=== PATIENT | female | born 1965 | race Asian ===

== ENCOUNTER → 2016-06-18 | Outpatient (CLI) | payer BC ==
--- NOTE | 2016-06-19 11:40 | MM ---
Reason for exam: screening (asymptomatic). Last mammogram was performed 1 year and 4 months ago. History: Patient is postmenopausal and had first child at age 30. Family history of breast cancer in paternal aunt. Physical Findings: A clinical breast exam by your physician is recommended on an annual basis and results should be correlated with mammographic findings. MG 3D Screening Mammo W/Cad Bilateral CC and MLO view(s) were taken. Prior study comparison: February 08, 2015, bilateral MG screening mammo w CAD. December 01, 2013, bilateral MG screening mammo w CAD. The breast tissue is heterogeneously dense. This may lower the sensitivity of mammography. No significant changes when compared with prior studies. ASSESSMENT: Benign, BI-RAD 2 RECOMMENDATION: Routine screening mammogram of both breasts in 1 year.
== END | disposition home or self-care (01) ==
LOC: RADMAMWWP 15:09
PROVIDERS: ATTEND Family Medicine
DX: Z12.31 Encounter for screening mammogram for malignant neoplasm of breast (principal)
CPT/HCPCS: 77063; G0202

== ENCOUNTER → 2017-06-19 | Outpatient (CLI) | payer BC ==
--- NOTE | 2017-06-23 07:51 | MM ---
Reason for exam: screening (asymptomatic). Last mammogram was performed 1 year ago. History: Patient is postmenopausal and had first child at age 30. Family history of breast cancer in paternal aunt. Physical Findings: A clinical breast exam by your physician is recommended on an annual basis and results should be correlated with mammographic findings. MG 3D Screening Mammo W/Cad Bilateral CC and MLO view(s) were taken. Prior study comparison: June 18, 2016, bilateral MG 3d screening mammo w/cad. February 08, 2015, bilateral MG screening mammo w CAD. There are scattered fibroglandular densities. No significant changes when compared with prior studies. ASSESSMENT: Negative, BI-RAD 1 RECOMMENDATION: Routine screening mammogram of both breasts in 1 year.
== END | disposition home or self-care (01) ==
LOC: RADMAMWWP 16:14
PROVIDERS: ATTEND Family Medicine
DX: Z12.31 Encounter for screening mammogram for malignant neoplasm of breast (principal)
CPT/HCPCS: 77063; 77067

== ENCOUNTER → 2020-04-04 | Outpatient (CLI) | payer BC ==
--- NOTE | 2020-04-09 09:01 | BD ---
EXAMINATION TYPE: Axial Bone Density DATE OF EXAM: 04/04/2020 COMPARISON: DEXA 2014 CLINICAL HISTORY: Postmenopausal female Height: 5 FT 3 04/16 Weight: 181 FRAX RISK QUESTIONS: Alcohol (3 or more units per day): NO Family History (Parent hip fracture): NO Glucocorticoids (More than 3mos): NO (Ex: prednisone, prednisolone, methylprednisolone, dexamethasone, and hydrocortisone). History of Fracture in Adulthood: YES Secondary Osteoporosis: 1. Type 1 Diabetes: NO 2. Hyperthyroidism: NO 3. Menopause before 45: YES 4. Malnutrition: NO 5. Chronic liver disease: NO Rheumatoid Arthritis: NO Current Tobacco Use: NO RISK FACTORS HISTORY OF: Family History of Osteoporosis: NO Active: NO Diet low in dairy products/other sources of calcium: NO Postmenopausal woman: MID 40'S NATURALLY Take estrogen and/or progesterone medications: NONE Lost more than 2 inches in height since high school: NO MEDICATIONS: Additional Medications: NONE Additional History: EXAM MEASUREMENTS: Bone mineral densitometry was performed using the [employer] System. Bone mineral density as measured about the Lumbar spine is: ----- L1-L4(G/cm2): 1.172 T Score Values are as follows: ----- L2: -0.6 ----- L3: 0.3 ----- L4: -0.1 ----- L1-L4: -0.1 Bone mineral density has: DECREASED -12.5 % since study of: 2014 Bone mineral density about the R hip (g/cm2): 0.907 Bone mineral density about the L hip (g/cm2): 0.940 T Score values are as follows: -----R Neck: -0.9 -----L Neck: -0.7 -----R Total: 0.8 -----L Total: 0.6 Bone mineral density has: DECREASED -8.2 % since study of: 2014 IMPRESSION: Normal (Values between +1 and -1 indicate normal bone mass). Consider repeating this study in 5 year s or sooner if there is some new clinical indication. NOTE: T-SCORE=SD OF THE YOUNG ADULT MEAN.
--- NOTE | 2020-04-09 09:44 | MM ---
Reason for exam: screening (asymptomatic). Last mammogram was performed 2 years and 9 months ago. History: Patient is postmenopausal and had first child at age 30. Family history of breast cancer in paternal aunt. Physical Findings: A clinical breast exam by your physician is recommended on an annual basis and results should be correlated with mammographic findings. MG 3D Screening Mammo W/Cad Bilateral CC and MLO view(s) were taken. Prior study comparison: June 19, 2017, bilateral MG 3d screening mammo w/cad. June 18, 2016, bilateral MG 3d screening mammo w/cad. The breast tissue is heterogeneously dense. This may lower the sensitivity of mammography. Upper outer quadrant mole on the left. No significant changes when compared with prior studies. ASSESSMENT: Negative, BI-RAD 1 RECOMMENDATION: Routine screening mammogram of both breasts in 1 year.
== END | disposition home or self-care (01) ==
LOC: RADMAMWWP 12:37
PROVIDERS: ATTEND Nurse Practitioner Family
DX: Z12.31 Encounter for screening mammogram for malignant neoplasm of breast (principal); Z78.0 Asymptomatic menopausal state
CPT/HCPCS: 77063; 77067; 77080

== ENCOUNTER → 2022-12-31 | Outpatient (CLI) | payer BC ==
--- NOTE | 2023-01-01 11:20 | MM ---
Reason for Exam: Screening (asymptomatic). Last mammogram was performed 2 year(s) and 9 month(s) ago. Patient History: Menarche at age 11. First Full-Term at age 30. Late child-bearing (after 30). Postmenopausal. Patient has history of breast feeding. Paternal aunt had breast cancer. Risk Values: Anna 5 year model risk: 1.1%. NCI Lifetime model risk: 6.2%. Prior Study Comparison: 06/18/2016 Bilateral Screening Mammogram, [facility]. 06/19/2017 Bilateral Screening Mammogram, [facility]. 04/04/2020 Bilateral Screening Mammogram, [facility]. Tissue Density: The breast tissue is heterogeneously dense. This may lower the sensitivity of mammography. Findings: Analyzed By CAD. There is no suspicious group of microcalcifications or new suspicious mass in either breast. Benign-appearing calcifications. Overall Assessment: Benign, BI-RAD 2 Management: Screening Mammogram of both breasts in 1 year. . Patient should continue monthly self-breast exams. A clinical breast exam by your physician is recommended on an annual basis. This exam should not preclude additional follow-up of suspicious palpable abnormalities. Note on Anna scores and lifetime risk: 1. A Anna score greater than 3% is considered moderate risk. If this is the case, consider specialist referral to assess eligibility for a risk reducing agent. 2. If overall lifetime risk for the development of breast cancer is 20% or higher, the patient may qualify for future screening with alternating mammogram and breast MRI. Electronically signed and approved by: Jose Martin Busby M.D. Radiologis
== END | disposition home or self-care (01) ==
LOC: RADMAMWWP 16:02
PROVIDERS: ATTEND Family Medicine
DX: Z12.31 Encounter for screening mammogram for malignant neoplasm of breast (principal); Z78.0 Asymptomatic menopausal state; Z80.3 Family history of malignant neoplasm of breast
CPT/HCPCS: 77063; 77067

== ENCOUNTER 2024-08-15 16:16 | Inpatient (IN) | payer BC ==
--- NOTE | 2024-08-15 16:29 | ED ---
General Adult HPI - General Chief complaint: Neuro Symptoms/Deficit Stated complaint: Headache,Slurred Speech Time Seen by Provider: 08/15/24 16:28 Source: patient Mode of arrival: wheelchair Limitations: no limitations - History of Present Illness Initial comments: Katina is a 59-year-old female who presents the ER today for evaluation of difficulty speaking and weakness of the left arm. Patient reports that yesterday evening around 6 or 6:30 PM she had an episode where she had difficulty speaking her daughter noted that it sounded like she was speaking with her mouth guarded and her speech sounded somewhat slurred. This lasted about 30 minutes but resolved. Patient did not seek care at that time. Patient states that after lunch today she had an episode where she again has slurred speech but this time also noted that when she went to lift something with her left hand she needed to use her right arm to assist lifting due to weakness in the left arm. After discussing the symptoms with family patient decided come the ER for evaluation. Patient does note that she has been told she has high cholesterol in the past however she does not take any medications and states that she prefers to treat everything naturally with essential oils and herbal remedies. - Related Data Home Medications Medication Instructions Recorded Confirmed No Known Home Medications 04/08/16 08/15/24 Allergies Allergy/AdvReac Type Severity Reaction Status Date / Time lidocaine Allergy Rash/Hives Verified 08/15/24 19:41 egg AdvReac congestion Verified 08/15/24 19:41 Milk Containing Products AdvReac causes Verified 08/15/24 19:41 (Dairy) muscle [Dairy] pain and congestion Review of Systems ROS Statement: Those systems with pertinent positive or pertinent negative responses have been documented in the HPI. ROS Other: All systems not noted in ROS Statement are negative. Past Medical History Past Medical History: No Reported History Additional Past Medical History / Comment(s): screening History of Any Multi-Drug Resistant Organisms: None Reported Additional Past Surgical History / Comment(s): ECTOPIC SX Past Anesthesia/Blood Transfusion Reactions: No Reported Reaction Past Psychological History: No Psychological Hx Reported Past Alcohol Use History: None Reported Past Drug Use History: None Reported - Past Family History Mother Family Medical History: Cancer General Exam - General Exam Comments Initial Comments: Physical Exam GENERAL: Patient is well-developed and well-nourished. Patient is nontoxic and well- hydrated and is in no distress. HENT: Normocephalic, Atraumatic. EYES: PERRL, EOMI PULMONARY: Unlabored respirations. No audible rales rhonchi or wheezing was noted. CARDIOVASCULAR: There is a regular rate and rhythm without any murmurs gallops or rubs. ABDOMEN: Soft and nontender with normal bowel sounds. SKIN: Skin is clear with no lesions or rashes and otherwise unremarkable. : Deferred NEUROLOGIC: Patient is alert and oriented x3. Moving all extremities spontaneously NIH 0 Cranial nerves II through XII grossly intact MUSCULOSKELETAL: Normal extremities with adequate strength and full range of motion. No lower extremity swelling or edema. No calf tenderness. PSYCHIATRIC: Normal psychiatric evaluation. Limitations: no limitations Course Vital Signs 08/15/24 08/15/24 08/15/24 16:21 16:35 16:50 Temperature 98.1 F Pulse Rate 83 90 85 Pulse Rate [ Pulse Oximetery ] Respiratory 18 18 18 Rate Blood Pressure 199/115 190/101 200/119 Blood Pressure [Right Arm] O2 Sat by Pulse 96 98 98 Oximetry 08/15/24 08/15/24 08/15/24 17:05 17:38 17:53 Temperature Pulse Rate 86 82 80 Pulse Rate [ Pulse Oximetery ] Respiratory 18 16 15 Rate Blood Pressure 209/111 150/74 Blood Pressure [Right Arm] O2 Sat by Pulse 98 96 94 L Oximetry 08/15/24 08/15/24 08/15/24 18:26 18:53 19:48 Temperature Pulse Rate 85 85 90 Pulse Rate [ Pulse Oximetery ] Respiratory 18 18 18 Rate Blood Pressure 141/89 161/95 174/93 Blood Pressure [Right Arm] O2 Sat by Pulse 94 L 96 98 Oximetry 08/15/24 08/15/24 08/15/24 21:30 22:29 22:34 Temperature Pulse Rate 80 77 85 Pulse Rate [ Pulse Oximetery ] Respiratory 18 18 Rate Blood Pressure 171/90 163/90 167/79 Blood Pressure [Right Arm] O2 Sat by Pulse 98 97 98 Oximetry 08/15/24 23:03 Temperature 97.7 F Pulse Rate Pulse Rate [ 77 Pulse Oximetery ] Respiratory 17 Rate Blood Pressure Blood Pressure 147/86 [Right Arm] O2 Sat by Pulse 93 L Oximetry EKG Findings - EKG Comments: EKG Findings:: EKG obtained as part of the stroke workup, EKG obtained at 1714 EKG with a rate of 86 rhythm is sinus with leftward axis normal intervals [place] 180 QRS 94 QTc [address] elevations or depressions no evidence of acute ischemia infarction or pathologic arrhythmia Medical Decision Making - Medical Decision Making Was pt. sent in by a medical professional or institution (CLEMENTINA Gray, PSYCH NP, urgent care, hospital, or [facility]...) When possible be specific @ -No Did you speak to anyone other than the patient for history (EMS, parent, family, police, friend...)? What history was obtained from this source @ -No Did you review nursing and triage notes (agree or disagree)? Why? @ -I reviewed and agree with nursing and triage notes Were old charts reviewed (outside hosp., previous admission, EMS record, old EKG, old radiological studies, urgent care reports/EKG's, [facility] records)? Report findings @ -No old charts were reviewed Differential Diagnosis (chest pain, altered mental status, abdominal pain women, abdominal pain men, vaginal bleeding, weakness, fever, dyspnea, syncope, headache, dizziness, GI bleed, back pain, seizure, CVA, palpatations, mental health)? @ -Not applicable EKG interpreted by me (3pts min.). @ -As above X-rays interpreted by me (1pt min.). @ -None done CT interpreted by me (1pt min.). @ -None done U/S interpreted by me (1pt. min.). @ -None done What testing was considered but not performed or refused? (CT, X-rays, U/S, labs)? Why? @ -None What meds were considered but not given or refused? Why? @ -None Did you discuss the management of the patient with other professionals (professionals i.e. CLEMENTINA Gray, PSYCH NP, lab, RT, psych nurse, social media strategist, fire extinguisher inspector, teacher, fare enforcement officer, director case)? Give summary @ -No Was smoking cessation discussed for >3mins.? @ -No Was critical care preformed (if so, how long)? @ -No Were there social determinants of health that impacted care today? How? (Homel essness, low income, unemployed, alcoholism, drug addiction, transportation, low edu. Level, literacy, decrease access to med. care, group home, rehab)? @ -No Was there de-escalation of care discussed even if they declined (Discuss DNR or withdrawal of care, Hospice)? DNR status @ -No What co-morbidities impacted this encounter? (DM, HTN, Smoking, COPD, CAD, Cancer, CVA, ARF, Chemo, Hep., AIDS, mental health diagnosis, sleep apnea, morbid obesity)? @ -None Was patient admitted / discharged? Hospital course, mention meds given and route, prescriptions, significant lab abnormalities, going to OR and other pertinent info. @ -Admit The patient was seen and evaluated, patient was a code thrombolytic due to strokelike symptoms though they had resolved at arrival. CT of the head was negative for acute findings. Given the patient's NIH was 0 no intervention was recommended. Labs are relatively unremarkable. I advised the patient she should be admitted for evaluation by neurology patient was agreeable with this. Patient admitted to [facility] hospitalist group. Undiagnosed new problem with uncertain prognosis? @ -No Drug Therapy requiring intensive monitoring for toxicity (Heparin, Nitro, Insulin, Cardizem)? @ -No Were any procedures done? @ -No Diagnosis/symptom? @ -TIA Acute, or Chronic, or Acute on Chronic? @ -Acute Uncomplicated (without systemic symptoms) or Complicated (systemic symptoms)? @ -Uncomplicated Side effects of treatment? @ -No Exacerbation, Progression, or Severe Exacerbation? @ -No Poses a threat to life or bodily function? How? (Chest pain, USA, PA, pneumonia, PE, COPD, DKA, ARF, appy, cholecystitis, CVA, Diverticulitis, Homicidal, Suicidal, threat to staff... and all critical care pts) @ -Potentially, high incidence of impending stroke - Lab Data Result diagrams: 08/15/24 16:42 08/15/24 16:42 Lab Results 08/15/24 08/15/24 08/15/24 Range/Units 16:42 16:42 16:42 WBC 9.75 (4.50-10.00) 10*3/uL RBC 5.18 (4.10-5.20) 10*6/uL Hgb 14.9 (12.0-15.0) g/dL Hct 43.5 (37.2-46.3) % MCV 84.0 (80.0-97.0) fL MCH 28.8 (27.0-32.0) pg MCHC 34.3 (32.0-37.0) g/dL Plt Count 278 (140-440) 10*3/uL MPV 9.4 L (9.5-12.2) fL Immature Gran % (Auto) 0.3 % Neutrophils % 64.2 % Lymphocytes % 28.6 % Monocytes % 5.0 % Eosinophils % 1.6 % Basophils % 0.3 % Immature Gran # 0.03 (0.00-0.04) 10*3/uL Neutrophils # 6.25 (1.80-7.70) 10*3/uL Lymphocytes # 2.79 (0.90-5.00) 10*3/uL Monocytes # 0.49 (0.20-1.00) 10*3/uL Eosinophils # 0.16 (0.04-0.35) 10*3/uL Basophils # 0.03 (0.00-0.10) 10*3/uL PT 10.1 (10.0-12.5) sec INR 0.9 (<1.2) APTT 28.3 (22.0-30.0) sec Sodium 141 (137-145) mmol/L Potassium 4.1 (3.5-5.1) mmol/L Chloride 101 (98-107) mmol/L Carbon Dioxide 27 (22-30) mmol/L Anion Gap 13 mmol/L BUN 18 H (7-17) mg/dL Creatinine 0.65 (0.52-1.04) mg/dL Est GFR (CKD-EPI)AfAm >90 (>60 ml/min/1.73 sqM) Est GFR (CKD-EPI)NonAf >90 (>60 ml/min/1.73 sqM) Glucose 101 H (74-99) mg/dL POC Glucose (mg/dL) (70-110) mg/dL POC Glu Optometric Aide ID Calcium 10.0 (8.4-10.2) mg/dL Total Bilirubin 0.5 (0.2-1.3) mg/dL AST 32 (14-36) U/L ALT 33 (4-34) U/L Alkaline Phosphatase 75 (38-126) U/L Creatine Kinase 88 (30-135) U/L Troponin I (0.000-0.034) ng/mL Total Protein 8.5 H (6.3-8.2) g/dL Albumin 4.9 (3.5-5.0) g/dL 08/15/24 08/15/24 Range/Units 16:42 16:43 WBC (4.50-10.00) 10*3/uL RBC (4.10-5.20) 10*6/uL Hgb (12.0-15.0) g/dL Hct (37.2-46.3) % MCV (80.0-97.0) fL MCH (27.0-32.0) pg MCHC (32.0-37.0) g/dL Plt Count (140-440) 10*3/uL MPV (9.5-12.2) fL Immature Gran % (Auto) % Neutrophils % % Lymphocytes % % Monocytes % % Eosinophils % % Basophils % % Immature Gran # (0.00-0.04) 10*3/uL Neutrophils # (1.80-7.70) 10*3/uL Lymphocytes # (0.90-5.00) 10*3/uL Monocytes # (0.20-1.00) 10*3/uL Eosinophils # (0.04-0.35) 10*3/uL Basophils # (0.00-0.10) 10*3/uL PT (10.0-12.5) sec INR (<1.2) APTT (22.0-30.0) sec Sodium (137-145) mmol/L Potassium (3.5-5.1) mmol/L Chloride (98-107) mmol/L Carbon Dioxide (22-30) mmol/L Anion Gap mmol/L BUN (7-17) mg/dL Creatinine (0.52-1.04) mg/dL Est GFR (CKD-EPI)AfAm (>60 ml/min/1.73 sqM) Est GFR (CKD-EPI)NonAf (>60 ml/min/1.73 sqM) Glucose (74-99) mg/dL POC Glucose (mg/dL) 128 H (70-110) mg/dL POC Glu Optometric Aide ID Ricketts Andriy Calcium (8.4-10.2) mg/dL Total Bilirubin (0.2-1.3) mg/dL AST (14-36) U/L ALT (4-34) U/L Alkaline Phosphatase (38-126) U/L Creatine Kinase (30-135) U/L Troponin I <0.012 (0.000-0.034) ng/mL Total Protein (6.3-8.2) g/dL Albumin (3.5-5.0) g/dL Disposition Clinical Impression: Transient cerebral ischemia Disposition: ADMITTED IP TO THIS HOSP Condition: Serious Is patient prescribed a controlled substance at d/c from ED?: No
[2024-08-15 16:44] LABS: Glucose,Whole Blood 128 mg/dL (70-110)
[2024-08-15 16:49] LABS: Basophils # (A) 0.03 10*3/uL (0.00-0.10); Basophils % (A) 0.3 %; Eosinophils # (A) 0.16 10*3/uL (0.04-0.35); Eosinophils % (A) 1.6 %; HCT 43.5 % (37.2-46.3); HGB 14.9 g/dL (12.0-15.0); Lymphocytes # (A) 2.79 10*3/uL (0.90-5.00); Lymphocytes % (A) 28.6 %; MCH 28.8 pg (27.0-32.0); MCHC 34.3 g/dL (32.0-37.0); Mean Platelet Volume 9.4 fL (9.5-12.2); Monocytes # (A) 0.49 10*3/uL (0.20-1.00); Neutrophils # (A) 6.25 10*3/uL (1.80-7.70); Neutrophils % (A) 64.2 %; Platelet Count 278 10*3/uL (140-440); RBC 5.18 10*6/uL (4.10-5.20); WBC 9.75 10*3/uL (4.50-10.00)
[2024-08-15 16:58] LABS: INR 0.9 (<1.2); Partial Thromboplastin Time 28.3 sec (22.0-30.0); Prothrombin Time 10.1 sec (10.0-12.5)
[2024-08-15 17:05] LABS: ALT 33 U/L (4-34); AST 32 U/L (14-36); African American GFR (CKD) >90 (>60 ml/min/1.73 sqM); Albumin 4.9 g/dL (3.5-5.0); Alkaline Phosphatase 75 U/L (38-126); Anion Gap 13 mmol/L; Blood Urea Nitrogen 18 mg/dL (7-17); Carbon Dioxide 27 mmol/L (22-30); Chloride 101 mmol/L (98-107); Creatine Kinase 88 U/L (30-135); Glucose 101 mg/dL (74-99); Non-African American GFR(CKD) >90 (>60 ml/min/1.73 sqM); Potassium 4.1 mmol/L (3.5-5.1); Sodium 141 mmol/L (137-145); Total Bilirubin 0.5 mg/dL (0.2-1.3); Total Protein 8.5 g/dL (6.3-8.2)
--- NOTE | 2024-08-15 17:30 | CT ---
EXAMINATION TYPE: CODE STROKE: CT brain wo contr DATE OF EXAM: 08/15/2024 5:26 PM COMPARISON: None. CLINICAL INDICATION: Female, 59 years old with history of Neuro deficit, acute, stroke suspected, Pt is coming in for slurred speech that occurred for 30 minutes last night and happened again today and lasted about 30 minutes, pt also mentioned left arm tingling. No priors in pacs 65 ml Isovue 370 DLP : 1544 KT TECHNIQUE: CT of the brain is performed utilizing 3 mm thick sections through the posterior fossa and 3 mm thick sections through the remaining calvarium. Study is performed within 24 hours of arrival to the hospital. Contrast used: mL of , (none if empty) CT DLP: 1544 mGycm, Automated exposure control for dose reduction was used. FINDINGS: No abnormal hyperdensity is present to suggest an acute intracranial hemorrhage. No mass lesion is evident. No acute infarcts are evident. Ventricles and sulci are appropriate for the patient age. Paranasal sinuses and mastoid air cells within the [id number] are clear. IMPRESSION: 1. No acute intracranial process. Follow up MRI can be performed as clinically indicated. [facility], Workstation: [facility], 08/15/2024 5:27 PM
--- NOTE | 2024-08-15 17:54 | CT ---
EXAMINATION TYPE: CT angio head neck DATE OF EXAM: 08/15/2024 5:36 PM COMPARISON: None. CLINICAL INDICATION: Female, 59 years old with history of Neuro deficit, acute, stroke suspected, Pt is coming in for slurred speech that occurred for 30 minutes last night and happened again today and lasted about 30 minutes, pt also mentioned left arm tingling. No priors in pacs 65 ml Isovue 370 DLP : 1544 KT TECHNIQUE: CTA scan is performed with axial images are obtained, coronal and sagittal reformatted vikram ges are reviewed. MIP images created on a separate workstation and submitted for review. 3-D reconstr ucted images are created on an independent workstation and reviewed. Source images are reviewed. FREDERIC CET criteria was used in interpretation of this exam? Contrast used:65 mL of Isovue 370 with IV Contrast, (none if empty) Oral contrast used: (none if empty) CT DLP: 1544 mGycm, Automated exposure control for dose reduction was used. FINDINGS: Carotid/Vascular Structures: There is a 3 vessel arch. Common carotid arteries bifurcate into internal and external carotid arteries without significant clyde w limiting stenosis. Vertebral arteries are codominant. Internal carotid arteries and vertebral arteries are patent to the skull base. Lung apices field-of- view are clear Cervical of [place]: Vertebral basilar system appears normal. Posterior cerebral vasculature is unrema rkable. Internal carotid arteries bifurcate normally into A1 and M1 segments. A2 segments are normal. The anterior communicating artery is absent. The right posterior communicating artery is absent. The left posterior communicating artery is absent. IMPRESSION: 1. No flow-limiting stenosis bilateral carotid bifurcations. 2. Normal [place] [facility], , 08/15/2024 5:52 PM
[2024-08-15] MEDS: ASPIRIN 325 MG TAB PO STA (18:47)
[2024-08-15] MEDS: ATORVASTATIN 80 MG TAB PO SCH (20:24)
--- NOTE | 2024-08-15 21:15 | XR ---
EXAMINATION TYPE: XR chest 2V DATE OF EXAM: 08/15/2024 8:22 PM COMPARISON: None. CLINICAL INDICATION: Female, 59 years old with history of altered mental status, TECHNIQUE: XR chest 2V view(s) obtained. FINDINGS: The heart size is normal. The pulmonary vasculature is normal. The lungs are clear. IMPRESSION: 1. No acute pulmonary process. [facility], Workstation: [facility], 08/15/2024 9:13 PM
[2024-08-16 08:11] LABS: Chol/HDL Ratio 5.06 Ratio; LDL Cholesterol,Calculated 200.5 mg/dL (0.0-131.0)
--- NOTE | 2024-08-16 15:10 | P.CNNES ---
History of Present Illness Consult date: 08/16/24 Requesting physician: Tereza Levy Reason for Consult: tia History of Present Illness: This is a 59-year-old woman with history of dyslipidemia and is not on any medication presents emergency department because of slurring speech and left hand weakness. She stated that her symptoms began this past Thursday and it la sted for about 1/2-hour then resolved then had another episode yesterday again lasted for half hour. She states that she continues to have some weakness in the left hand with her fine motor movement. She denies any history of stroke. She does have a history of dyslipidemia that is chronic and refuses to be on medication in the past and tried herbal route. She is on any medication at home. She denies any tobacco use, any illicit drug use or any significant alcohol use. She denies any A-fib, any other medical issues. Some of workup during this hospital visit consisted of: I reviewed the lab workup Lipid panel: Triglyceride is 245, cholesterol is 311, LDL is 200, HDL 61. CT of the head is reported as no acute intracranial process. I personally reviewed the CT and agree with the report. CT angiography of the head and neck is reported as no flow-limiting stenosis bilateral carotid bifurcation. Normal [place]. Review of Systems As per HPI. Past Medical History Past Medical History: No Reported History Additional Past Medical History / Comment(s): screening History of Any Multi-Drug Resistant Organisms: None Reported Additional Past Surgical History / Comment(s): ECTOPIC SX Past Anesthesia/Blood Transfusion Reactions: No Reported Reaction Past Psychological History: No Psychological Hx Reported Past Alcohol Use History: None Reported Past Drug Use History: None Reported - Past Family History Mother Family Medical History: Cancer Medications and Allergies Home Medications Medication Instructions Recorded Confirmed Type No Known Home Medications 04/08/16 08/15/24 History Allergies Allergy/AdvReac Type Severity Reaction Status Date / Time lidocaine Allergy Rash/Hives Verified 08/15/24 19:41 egg AdvReac congestion Verified 08/15/24 19:41 Milk Containing Products AdvReac causes Verified 08/15/24 19:41 (Dairy) muscle [Dairy] pain and congestion Physical Examination - Vital Signs Vital Signs: Vital Signs Temp Pulse Pulse Resp BP BP BP 08/16/24 14:20 97.6 F 93 16 186/103 08/16/24 06:55 97.4 F L 72 16 156/93 08/16/24 01:06 97.9 F 60 16 153/86 08/15/24 23:03 97.7 F 77 17 147/86 08/15/24 22:34 85 167/79 08/15/24 22:29 77 18 163/90 08/15/24 21:30 80 18 171/90 08/15/24 19:48 90 18 174/93 08/15/24 18:53 85 18 161/95 08/15/24 18:26 85 18 141/89 08/15/24 17:53 80 15 08/15/24 17:38 82 16 150/74 08/15/24 17:05 86 18 209/111 08/15/24 16:50 85 18 200/119 08/15/24 16:35 90 18 190/101 08/15/24 16:21 98.1 F 83 18 199/115 Pulse Ox 08/16/24 14:20 98 08/16/24 06:55 96 08/16/24 01:06 95 08/15/24 23:03 93 L 08/15/24 22:34 98 08/15/24 22:29 97 08/15/24 21:30 98 08/15/24 19:48 98 08/15/24 18:53 96 08/15/24 18:26 94 L 08/15/24 17:53 94 L 08/15/24 17:38 96 08/15/24 17:05 98 08/15/24 16:50 98 08/15/24 16:35 98 08/15/24 16:21 96 Intake and Output 08/15/24 08/16/24 08/16/24 22:59 06:59 14:59 Intake Total 590 Balance 590 Intake: Oral 590 Other: # Voids 2 2 Weight 79.379 kg GENERAL: The patient is lying in bed and is not in acute distress. NEUROLOGICAL: Higher mental function: The patient is awake, alert, oriented to self, place and time. Patient is following commands. No aphasia and no neglect. Cranial nerves: The pupils are round, equal and reactive to light and acco mmodation. Visual rosales are full to confrontation throughout. Extraocular movement is intact no nystagmus is noted. Facial sensation is normal to touch throughout. The facial strength is normal throughout. Hearing is normal bilaterally to hand rub. Tongue is midline and moved [id number] without any difficulty. No dysarthria is noted. Shoulder shrug is normal bilaterally. Motor: The strength is 5 over 5 throughout. Normal tone and bulk. Cerebellum: Normal finger to nose heel to pike bilaterally. Sensation: Sensation is normal to touch throughout. Reflexes (right/left): 2+ throughout. Plantars are downgoing bilaterally. Results - Laboratory Findings CBC and BMP: 08/15/24 16:42 08/15/24 16:42 Abnormal Lab Findings: Abnormal Labs 08/15/24 08/15/24 08/15/24 16:42 16:42 16:42 MPV 9.4 L BUN 18 H Glucose 101 H POC Glucose (mg/dL) Total Protein 8.5 H Triglycerides 245.00 H Cholesterol 311.00 H LDL Cholesterol, Calc 200.5 H VLDL Cholesterol, Calc 49.00 H HDL Cholesterol 61.50 H 08/15/24 16:43 MPV BUN Glucose POC Glucose (mg/dL) 128 H Total Protein Triglycerides Cholesterol LDL Cholesterol, Calc VLDL Cholesterol, Calc HDL Cholesterol Assessment and Plan Assessment: This is a 59-year-old woman with history of dyslipidemia who is on herbal medication and she was medication for her dyslipidemia in the past who presents the emergency department because of dysarthria and left arm numbness and left hand fine motor movements weakness. Her symptoms happened this past Thursday lasted for half hour then occurred again. Transischemic attack (TIA) Hypertension urgency blood pressure during this hospital visit was as high as 200/119 Dyslipidemia and it seems that patient has chronic dyslipidemia and was on herbal and refused medication in the past. Plan: Patient is started on aspirin 81 mg daily and was given a loading dose of aspirin 325 once in the ED. It seems that she bruised easily, dual antiplatelet that with increased risk for bleed. She is started on Lipitor 80 mg nightly by the ED team and that sufficient for secondary stroke prophylaxis. I ordered MRI of the brain, 2D echo, TSH Continue neurochecks Cardiac monitoring PT, OT and [employer]OVER are consulted next Will defer the rest of the medical management to primary and other specialist For DVT prophylaxis use SCDs since the patient is ambulatory. The plan is discussed with the patient and her at bedside. Thank you for the consultation. Time with Patient: Greater than 30
[2024-08-16] MEDS: ASPIRIN 81 MG PO SCH (18:39)
[2024-08-16] MEDS: amLODIPine 5 MG TAB PO SCH (18:39)
--- NOTE | 2024-08-16 20:05 | P.HPIM ---
History of Present Illness H&P Date: 08/16/24 Chief Complaint: Slurred speech Patient is a 59-year-old female without significant past medical history presents to ER with complaints of slurred speech and left hand weakness on and off for 3 days. Patient states that on Thursday symptoms lasted about half an hour and again yesterday about half an hour she came to ER for evaluation.. Again today she has symptoms this morning lasted longer than that and also states that she had a charley horse on the left leg. Currently symptoms have resolved but still having some residual left upper extremity weakness. Denies any headache. No nausea vomiting or diarrhea. No recent illnesses. No fever no chills. No chest pain or shortness of breath or palpitations. CT head showed no acute intracranial process. CT angiogram of the head and neck showed no flow-limiting stenosis bilateral carotid bifurcations. Normal [place]. Chest x-ray showed no acute pulmonary process. EKG showed sinus rhythm with low QRS voltage in the precordial leads. Laboratory data showed WBC 9.7 hemoglobin 14.9 and platelets 278 sodium 141 potassium 4.1 chloride 101 bicarb is 27 BUN 18 and creatinine 0.65 blood sugar 101 LDL 212 cholesterol 311 and triglycerides 245. 11 years not elevated. Troponin x 1 negative Review of Systems Constitutional: Patient denies any fever or chills . No generalized weakness or weight loss. Abdomen: Patient denied nausea vomiting and diarrhea and abdominal pain. Cardiovascular: Patient denies any chest pain or short of breath no palpitations. Respiratory: patient denied any cough or sputum production. No shortness of breath Neurologic: Patient denied any numbness or tingling. no headache. Musculoskeletal: Patient denies any complaints of joint swelling or deformity. Skin: Negative Psychiatric: Negative Endocrine: No heat or cold intolerance. No recent weight gain. Genitourinary: No dysuria or hematuria. All other 14 point ROS negative except the above Past Medical History Past Medical History: No Reported History Additional Past Medical History / Comment(s): screening History of Any Multi-Drug Resistant Organisms: None Reported Additional Past Surgical History / Comment(s): ECTOPIC SX Past Anesthesia/Blood Transfusion Reactions: No Reported Reaction Past Psychological History: No Psychological Hx Reported Past Alcohol Use History: None Reported Past Drug Use History: None Reported - Past Family History Mother Family Medical History: Cancer Medications and Allergies Home Medications Medication Instructions Recorded Confirmed Type No Known Home Medications 04/08/16 08/15/24 History Allergies Allergy/AdvReac Type Severity Reaction Status Date / Time lidocaine Allergy Rash/Hives Verified 08/15/24 19:41 egg AdvReac congestion Verified 08/15/24 19:41 Milk Containing Products AdvReac causes Verified 08/15/24 19:41 (Dairy) muscle [Dairy] pain and congestion Physical Exam Vitals: Vital Signs Temp Pulse Pulse Resp BP BP BP 08/16/24 06:55 97.4 F L 72 16 156/93 08/16/24 01:06 97.9 F 60 16 153/86 08/15/24 23:03 97.7 F 77 17 147/86 08/15/24 22:34 85 167/79 08/15/24 22:29 77 18 163/90 08/15/24 21:30 80 18 171/90 08/15/24 19:48 90 18 174/93 08/15/24 18:53 85 18 161/95 08/15/24 18:26 85 18 141/89 08/15/24 17:53 80 15 08/15/24 17:38 82 16 150/74 08/15/24 17:05 86 18 209/111 08/15/24 16:50 85 18 200/119 08/15/24 16:35 90 18 190/101 08/15/24 16:21 98.1 F 83 18 199/115 Pulse Ox 08/16/24 06:55 96 08/16/24 01:06 95 08/15/24 23:03 93 L 08/15/24 22:34 98 08/15/24 22:29 97 08/15/24 21:30 98 08/15/24 19:48 98 08/15/24 18:53 96 08/15/24 18:26 94 L 08/15/24 17:53 94 L 08/15/24 17:38 96 08/15/24 17:05 98 08/15/24 16:50 98 08/15/24 16:35 98 08/15/24 16:21 96 Intake and Output 08/15/24 08/16/24 08/16/24 22:59 06:59 14:59 Intake Total 590 Balance 590 Intake: Oral 590 Other: # Voids 2 Weight 79.379 kg PHYSICAL EXAMINATION: Patient is lying in the bed comfortably, no acute distress, awake alert and oriented.. HEENT: Normocephalic. Neck is supple. Pupils reactive. Nostrils clear. Oral cavity is moist. Neck reveals no JVD, carotid bruits, or thyromegaly. CHEST EXAMINATION: Trachea is central. Symmetrical expansion. Lung rosales clear to auscultation and percussion. CARDIAC: Normal S1, S2 with no gallops. No murmurs ABDOMEN: Soft. Bowel sounds normal. No organomegaly. No abdominal bruits. Extremities: reveal no edema. No clubbing or cyanosis Neurologically awake, alert, oriented x3 with well-coordinated movements. No focal deficits noted Skin: No rash or skin lesions. Psychiatric: Coperative. Nonsuicidal Musculoskeletal: No joint swelling or deformity. Normal range of motion. Results CBC & Chem 7: 08/15/24 16:42 08/15/24 16:42 Labs: Abnormal Lab Results - Last 24 Hours (Table) 08/15/24 08/15/24 08/15/24 Range/Units 16:42 16:42 16:42 MPV 9.4 L (9.5-12.2) fL BUN 18 H (7-17) mg/dL Glucose 101 H (74-99) mg/dL POC Glucose (mg/dL) (70-110) mg/dL Total Protein 8.5 H (6.3-8.2) g/dL Triglycerides 245.00 H (0.00-149.00) mg/dL Cholesterol 311.00 H (0.00-200.00) mg/dL LDL Cholesterol, Calc 200.5 H (0.0-131.0) mg/dL VLDL Cholesterol, Calc 49.00 H (5.00-40.00) mg/dL HDL Cholesterol 61.50 H (40.00-60.00) mg/dL 08/15/24 Range/Units 16:43 MPV (9.5-12.2) fL BUN (7-17) mg/dL Glucose (74-99) mg/dL POC Glucose (mg/dL) 128 H (70-110) mg/dL Total Protein (6.3-8.2) g/dL Triglycerides (0.00-149.00) mg/dL Cholesterol (0.00-200.00) mg/dL LDL Cholesterol, Calc (0.0-131.0) mg/dL VLDL Cholesterol, Calc (5.00-40.00) mg/dL HDL Cholesterol (40.00-60.00) mg/dL Thrombosis Risk Factor Assmnt - DVT/VTE Prophylaxis DVT/VTE Prophylaxis: Pharmacologic Prophylaxis ordered - Choose All That Apply Each Factor Represents 1 point: Age 41-60 years, Obesity (BMI >25) Thrombosis Risk Factor Assessment Total Risk Factor Score: 2 Thrombosis Risk Factor Assessment Level: Low Risk Assessment and Plan Assessment: Left-upper extremity weakness and slurred speech likely due to TIA. Resolved now. Hypertensive urgency Hyperlipidemia with LDL 212 DVT prophylaxis with heparin subcu Plan: Patient will be continued on telemonitoring and neurochecks. CT head and CT angio of the head and neck was done and report as above. Follow-up 2D echocardiogram and MRI of the brain was ordered. Neurology is on board. Patient was started on Norvasc 5 mg daily and titrate blood pressure medications as needed. Ordered TSH and A1c levels. Continue to follow closely.
[2024-08-16 22:28] LABS: Appearance,Urine Clear (Clear); Bilirubin,Urine Negative (Negative); Blood,Urine Negative (Negative); Color,Urine Colorless; Glucose,Urine (UA) Negative (Negative); Ketones,Urine Negative (Negative); Leukocyte Esterase,Urine Negative (Negative); Nitrite,Urine Negative (Negative); Protein,Urine Negative (Negative); Specific Gravity,Urine 1.002 (1.001-1.035); Urobilinogen,Urine <2.0 mg/dL (<2.0)
[2024-08-17] MEDS: HEPARIN SODIUM,PORCINE 5,000 UNIT/ML 1 ML VIAL SQ SCH (00:42)
[2024-08-17] MEDS: MELATONIN 5 MG TABLET PO PRN (01:32)
[2024-08-17 08:36] LABS: Blood Urea Nitrogen 14.7 mg/dL (9.0-27.0); Calcium 9.3 mg/dL (8.7-10.3); Carbon Dioxide 22.7 mmol/L (21.6-31.8); Chloride 103 mmol/L (96-109); Glucose 110 mg/dL (70-110); Sodium 140 mmol/L (135-145)
[2024-08-17] MEDS ORDERED: ASPIRIN 81 MG PO SCH (09:00)
[2024-08-17] MEDS ORDERED: amLODIPine 5 MG TAB PO SCH (09:00)
--- NOTE | 2024-08-17 11:16 | CA ---
Transthoracic Echo Report Name: Katina Downey Age: 59 Gender: F : 1965 Exam Date: 08/17/2024 08:42 Exam Location: [facility] Ht (in): 63 Wt (lb): 175 Ordering Physician: Antwan Dougherty MD Attending/Referring Phys: Sprinkler Driver Qasim Castro RDCS Procedure CPT: Indications: CVA Cardiac Hx: Technical Quality: Good Contrast 1: Total Dose (mL): Contrast 2: Total Dose (mL): MEASUREMENTS (Male / Female) Normal Values 2D ECHO LV Diastolic Diameter PLAX 3.9 cm 4.2 - 5.9 / 3.9 - 5.3 cm LV Systolic Diameter PLAX 2.6 cm IVS Diastolic Thickness 1.0 cm 0.6 - 1.0 / 0.6 - 0.9 cm LVPW Diastolic Thickness 1.0 cm 0.6 - 1.0 / 0.6 - 0.9 cm LV Relative Wall Thickness 0.5 RV Internal Dim ED PLAX 3.2 cm LVOT Diameter 1.9 cm LA Systolic Diameter LX 3.6 cm 3.0 - 4.0 / 2.7 - 3.8 cm LV Diastolic Volume MOD BP 86.4 cm??? 67 - 155 / 56 - 104 cm??? LV Systolic Volume MOD BP 38.4 cm??? 22 - 58 / 19 - 49 cm??? LV Ejection Fraction MOD BP 55.5 % >= 55 % LV Cardiac Index MOD BP 1810.0 cm???/min???m??? LV Diastolic Volume MOD 4C 99.3 cm??? LV Systolic Volume MOD 4C 34.8 cm??? LV Ejection Fraction MOD 4C 64.9 % LV Cardiac Index MOD 4C 2434.0 cm???/min???m??? LV Diastolic Length 4C 7.6 cm LV Systolic Length 4C 5.4 cm LV Diastolic Volume MOD 2C 73.7 cm??? LV Systolic Volume MOD 2C 36.7 cm??? LV Ejection Fraction MOD 2C 50.2 % LV Cardiac Index MOD 2C 1398.3 cm???/min???m??? LV Diastolic Length 2C 7.4 cm LV Systolic Length 2C 6.3 cm LA Volume 32.2 cm??? 18 - 58 / 22 - 52 cm??? LA Volume Index 16.9 cm???/m??? 16 - 28 cm???/m??? DOPPLER AI Peak Velocity 437.9 cm/s AI Peak Gradient 76.7 mmHg MV Area PHT 3.1 cm??? Mitral E Point Velocity 45.8 cm/s Mitral A Point Velocity 79.5 cm/s Mitral E to A Ratio 0.6 MV Deceleration Time 248.4 ms TR Peak Velocity 196.4 cm/s TR Peak Gradient 15.4 mmHg Right Atrial Pressure 5.0 mmHg Pulmonary Artery Systolic Pressu 20.4 mmHg Right Ventricular Systolic Press 20.4 mmHg FINDINGS Left Ventricle Left ventricular ejection fraction is estimated at 60%. Mildly increased septal wall thickness. Normal left ventricular systolic function with no obvious regional wall motion abnormalities. Right Ventricle Normal right ventricular size and function. Right ventricular systolic pressure within normal limits. Right Atrium Normal right atrial size. Negative agitated saline bubble study for right to left shunt. Left Atrium Normal left atrial size. Mitral Valve Mitral annular calcification. No mitral stenosis. Trace mitral regurgitation. Aortic Valve Trileaflet aortic valve. No aortic stenosis. Mild aortic regurgitation. Tricuspid Valve Structurally normal tricuspid valve. No tricuspid stenosis. Trace to mild tricuspid regurgitation. Pulmonic Valve Structurally normal pulmonic valve. No pulmonic stenosis. Trace pulmonic regurgitation. Pericardium Minimal pericardial effusion (normal variant). Aorta Normal size aortic root and proximal ascending aorta. CONCLUSIONS Normal LV size and systolic function. Minimal mitral and tricuspid and aortic regurgitation. There is no significant pericardial effusion but cannot exclude a fat pad or a trivial effusion. Previewed by: Dr. Roman Mena MD (Electronically Signed) Final Date: 17 Aug 2024 11:14
--- NOTE | 2024-08-17 16:10 | P.PN ---
Subjective Progress Note Date: 08/17/24 I am following up with the patient and she feels she is back to baseline. Denies any new neurological issues. Objective - Vital Signs Vital signs: Vital Signs Temp 97.9 F 08/17/24 15:00 Pulse 74 08/17/24 15:00 Resp 16 08/17/24 15:00 BP 153/96 08/17/24 15:00 Pulse Ox 96 08/17/24 15:00 FiO2 Intake & Output 08/16/24 08/17/24 08/17/24 18:59 06:59 18:59 Intake Total 590 Balance 590 Intake: Oral 590 Other: # Voids 2 2 3 - Exam GENERAL: The patient is not in acute distress. NEUROLOGICAL: Higher mental function: The patient is awake, alert, oriented to self, place and time. Patient is following commands. No aphasia and no neglect. Cranial nerves: The pupils are round, equal and reactive to light and accommodation. Visual rosales are full to confrontation throughout. Extraocular movement is intact no nystagmus is noted. Facial sensation is normal to touch throughout. The facial strength is normal throughout. Hearing is normal bilaterally to hand rub. Tongue is midline and moved [id number] without any difficulty. No dysarthria is noted. Shoulder shrug is normal bilaterally. Motor: Gait is normal. The strength is 5 over 5 throughout. Normal tone and bulk. Cerebellum: Normal finger to nose heel to pike bilaterally. Sensation: Sensation is normal to touch throughout. Some of workup during this hospital visit consisted of: I reviewed the lab workup Hemoglobin A1c 6.3 TSH is 1.820 Lipid panel: Triglyceride is 245, cholesterol is 311, LDL is 200, HDL 61. CT of the head is reported as no acute intracranial process. I personally reviewed the CT and agree with the report. CT angiography of the head and neck is reported as no flow-limiting stenosis bilateral carotid bifurcation. Normal [place]. 2D echo: Normal systolic function. - Labs CBC & Chem 7: 08/15/24 16:42 08/17/24 04:55 Labs: Abnormal Lab Results - Last 24 Hours (Table) 08/17/24 08/17/24 Range/Units 04:55 04:55 Anion Gap 14.30 H (4.00-12.00) mmol/L BUN/Creatinine Ratio 21.00 H (12.00-20.00) Ratio Hemoglobin A1c 6.3 H (<=6.0) % Assessment and Plan Assessment: This is a 59-year-old woman with history of dyslipidemia who is on herbal medication and she was medication for her dyslipidemia in the past who presents the emergency department because of dysarthria and left arm numbness and left h and fine motor movements weakness. Her symptoms happened this past Thursday lasted for half hour then occurred again. Transischemic attack (TIA) Hypertension urgency blood pressure during this hospital visit was as high as 200/119 Dyslipidemia and it seems that patient has chronic dyslipidemia and was on herbal and refused medication in the past. Pre-DM Plan: Patient is started on aspirin 81 mg daily and was given a loading dose of aspirin 325 once in the ED. It seems that she bruised easily, so will avoid dual antiplatelet that with increased risk for bleed. She is started on Lipitor 80 mg nightly by the ED team and that sufficient for secondary stroke prophyla xis. MRI of the brain is pending Continue neurochecks Cardiac monitoring PT, OT and MA[employer]GER [employer] are consulted next Will defer the rest of the medical management to primary and other specialist For DVT prophylaxis use SCDs since the patient is ambulatory. Upon discharge recommend the patient to follow-up with a neurologist as an outpatient within 2 to 3 weeks. The plan is discussed with the patient and her at bedside. If MRI of the brain is unremarkable for acute or subacute cva, then patient is clear from neurological perspective. Time with Patient: Less than 30
[2024-08-17] MEDS: amLODIPine 5 MG TAB PO SCH (20:16)
[2024-08-17] MEDS: ACETAMINOPHEN TAB 325 MG TAB PO PRN (20:23)
[2024-08-18 08:27] LABS: Glucose,Whole Blood 196 mg/dL (70-110)
[2024-08-18 08:33] LABS: Basophils # (A) 0.04 X 10*3/uL (0.00-0.10); Basophils % (A) 0.5 %; Eosinophils % (A) 2.4 %; HCT 41.1 % (37.2-46.3); HGB 13.7 g/dL (12.0-15.0); Lymphocytes % (A) 28.1 %; MCH 28.4 pg (27.0-32.0); MCHC 33.3 g/dL (32.0-37.0); MCV 85.3 FL (80.0-97.0); Mean Platelet Volume 9.9 FL (9.5-12.2); Monocytes # (A) 0.42 X 10*3/uL (0.20-1.00); Monocytes % (A) 5.1 %; NRBC Per 100 WBC 0 X 10*3/uL (0.00-0.01); Neutrophils # (A) 5.21 X 10*3/uL (1.80-7.70); Neutrophils % (A) 63.7 %; Platelet Count 268 X 10*3/uL (140-440); RBC 4.82 X 10*6/uL (4.10-5.20); RDW 13.9 % (11.5-14.5); WBC 8.19 X 10*3/uL (4.50-10.00)
[2024-08-18 08:57] LABS: ALT 27 U/L (8-44); AST 21 U/L (13-35); Albumin 4.1 g/dL (3.8-4.9); Albumin/Globulin Ratio 1.52 Ratio (1.60-3.17); Alkaline Phosphatase 77 U/L (41-126); Blood Urea Nitrogen 12.9 mg/dL (9.0-27.0); Calcium 9.4 mg/dL (8.7-10.3); Carbon Dioxide 24.2 mmol/L (21.6-31.8); Chloride 103 mmol/L (96-109); Globulin 2.7 g/dL (1.6-3.3); Glucose 113 mg/dL (70-110); Magnesium 2.2 mg/dL (1.5-2.4); Potassium 4.1 mmol/L (3.5-5.5); Sodium 140 mmol/L (135-145); Total Bilirubin 0.4 mg/dL (0.3-1.2); Total Protein 6.8 g/dL (6.2-8.2)
--- NOTE | 2024-08-18 09:00 | CT ---
EXAMINATION TYPE: CODE STROKE: CT brain wo contr DATE OF EXAM: 08/18/2024 COMPARISON: CT brain 3 days earlier. CLINICAL INDICATION: Female, 59 years old with history of Neuro deficit, acute, stroke suspected, Massiel ro deficits. TECHNIQUE: CT scan of the head is performed without contrast. CT DLP: 1090.4 mGycm. Automated Exposure Control for Dose Reduction was Utilized. FINDINGS: There is no acute intracranial hemorrhage or midline shift identified. There is mild diff use ventricular and sulcal prominence redemonstrated. Vague area of low attenuation right coronal rad iata extending into right basal ganglia is more prominent versus most recent prior axial images rough . The globes are intact and the visualized sinuses are clear. IMPRESSION: No acute intracranial hemorrhage or midline shift. Probable evolving acute infarct right slaazar radiata extending into the central superior basal ganglia. [facility], , 08/18/2024 8:57 AM
--- NOTE | 2024-08-18 09:21 | P.PN ---
Subjective Progress Note Date: 08/17/24 Patient is a 59-year-old female without significant past medical history presents to ER with complaints of slurred speech and left hand weakness on and off for 3 days. Patient states that on Thursday symptoms lasted about half an hour and again yesterday about half an hour she came to ER for evaluation.. Again today she has symptoms this morning lasted longer than that and also states that she had a charley horse on the left leg. Currently symptoms have resolved but still having some residual left upper extremity weakness. Denies any headache. No nausea vomiting or diarrhea. No recent illnesses. No fever no chills. No chest pain or shortness of breath or palpitations. CT head showed no acute intracranial process. CT angiogram of the head and neck showed no flow-limiting stenosis bilateral carotid bifurcations. Normal [place]. Chest x-ray showed no acute pulmonary process. EKG showed sinus rhythm with low QRS voltage in the precordial leads. Laboratory data showed WBC 9.7 hemoglobin 14.9 and platelets 278 sodium 141 potassium 4.1 chloride 101 bicarb is 27 BUN 18 and creatinine 0.65 blood sugar 101 LDL 212 cholesterol 311 and triglycerides 245. 11 years not elevated. T roponin x 1 negative 08/17/2024 Patient seen in follow-up today and reports continued headache and hypertension. Blood pressure elevated somewhat and has been started on Norvasc 5 mg if continuing to be elevated may add to twice daily. Neurology following and patient is scheduled to undergo MRI and per nursing staff MRI is extremely backed up and may not occur until tomorrow. Patient did have CT angio that was done that shows no flow-limiting stenosis to bilateral carotid bifurcations and normal [place]. Patient's cholesterol is elevated and patient reports this has been chronic and she has not been taking any medications for this. Will start statin therapy and discussed with her the importance of diet control and will also consult dietary for resources regarding hyperlipidemia. Review of systems: Constitutional: No reports of fatigue, fever, or chills Cardiovascular: No reports of chest pain or palpitations Respiratory: No reports of shortness of breath or cough GI: No reports of nausea, vomiting, or diarrhea : No reports of dysuria or retention Neurovascular: No reports of weakness or numbness All medications have been reviewed PHYSICAL EXAMINATION: Patient is lying in the bed comfortably, no acute distress, awake alert and oriented.. Well-developed, obese HEENT: Normocephalic. Neck is supple. Pupils reactive. Nostrils clear. Oral cavity is moist. Neck reveals no JVD, carotid bruits, or thyromegaly. CHEST EXAMINATION: Trachea is central. Symmetrical expansion. Lung rosales clear to auscultation and percussion. CARDIAC: Normal S1, S2 with no gallops. No murmurs ABDOMEN: Soft. Bowel sounds normal. No organomegaly. No abdominal bruits. Extremities: reveal no edema. No clubbing or cyanosis Neurologically awake, alert, oriented x3 with well-coordinated movements. No focal deficits noted Skin: No rash or skin lesions. Psychiatric: Cooperative. Non-suicidal Musculoskeletal: No joint swelling or deformity. Normal range of motion. Assessment: Left-upper extremity weakness and slurred speech likely due to TIA. Resolved now. Hypertensive urgency Hyperlipidemia with LDL 212 DVT prophylaxis with heparin subcu Plan: Patient will be continued on telemonitoring and neurochecks. CT head and CT angio of the head and neck was done and report as above. Follow- up 2D echocardiogram reveals a normal EF of 60% with mildly increased septal w all thickness and no obvious regional wall motion abnormalities with a negative bubble study. There is no significant pericardial effusion but cannot completely exclude a fat pad or a trivial effusion and per cardiology minimal pericardial effusion is a normal variant within normal aortic size root and proximal ascending aorta. MRI of the brain was ordered and remains pending and per nursing staff they are extremely backed up and could be 1 to 2 days before receiving an MRI. Neurology is on board and is aware. Will await MRI. Patient was started on Norvasc 5 mg daily and titrate blood pressure medications as needed. If patient continues to have increasing blood pressure today will make Norvasc twice daily Hemoglobin A1c was noted to be 6.3 and again have consulted dietary for recommen dations regarding hyperlipidemia and diet control. Patient will need outpatient follow-up with neurology as well as vascular surgery if needed and her primary care provider Will await MRI and clearance from neurology with possible discharge planning once MRI is performed in the next 24 to 48 hours The impression and plan of care has been dictated by Tereza oLcke, Nurse Practitioner as directed. Dr. Carmen MD I have performed a history and examination and MDM of this patient, discussed the same with the dictator, and agree with the dictator's assessment and plan as written ,documented as a scribe. Based on total visit time, I have performed more than 50% of the visit. Objective - Vital Signs Vital signs: Vital Signs Temp 97.8 F 08/17/24 07:00 Pulse 77 08/17/24 07:00 Resp 15 08/17/24 07:00 BP 125/79 08/17/24 07:00 Pulse Ox 98 08/17/24 07:00 FiO2 Intake & Output 08/16/24 08/17/24 08/17/24 18:59 06:59 18:59 Intake Total 590 Balance 590 Intake: Oral 590 Other: # Voids 2 2 - Labs CBC & Chem 7: 08/18/24 05:28 08/18/24 05:28 Labs: Abnormal Lab Results - Last 24 Hours (Table) 08/17/24 08/17/24 Range/Units 04:55 04:55 Anion Gap 14.30 H (4.00-12.00) mmol/L BUN/Creatinine Ratio 21.00 H (12.00-20.00) Ratio Hemoglobin A1c 6.3 H (<=6.0) %
--- NOTE | 2024-08-18 09:30 | CT ---
EXAMINATION TYPE: CODE STROKE: CTA head neck DATE OF EXAM: 08/18/2024 COMPARISON: CTA 3 days earlier CLINICAL INDICATION: Female, 59 years old with history of Neuro deficit, acute, stroke suspected, Massiel ro deficits., TECHNIQUE: CTA scan of the head and neck is performed with IV Contrast, patient injected with 65ml m L of Isovue 370, axial images are obtained, coronal and sagittal reformatted images are reviewed. 3D reconstructed images are created on an independent workstation and reviewed. NASCET criteria was used in interpretation of this exam? CT DLP: 337.4 mGycm. Automated Exposure Control for Dose Reduction was Utilized. FINDINGS: Vertebral arteries: The vertebral arteries are patent. Vertebral artery dominance: Codominant Basilar artery: The basilar artery is intact. The basilar artery bifurcation is normal. Internal Carotid arteries: The cervical, petrous, cavernous and supraclinoid segments are normal. MAYRA: Patent with no evidence of aneurysm. ACOM: Hypoplastic. MCA: Patent with no evidence of aneurysm. SEGMENT PRODUCER: Patent with no evidence of aneurysm. PCOM: Hypoplastic bilaterally. Dural sinuses: Patent. CTA NECK: Right Carotid System: The common carotid artery and external carotid artery are patent. The carotid bifurcation demonstrate s no evidence of hemodynamically significant stenosis. The remaining portions of the internal carotid artery demonstrate normal size without significant narrowing. Left Carotid System: The common carotid artery and external carotid artery are patent. The carotid bifurcation demonstrate s no evidence of hemodynamically significant stenosis. The remaining portions of the internal carotid artery demonstrate normal size without significant narrowing. Vertebral arteries are patent without evidence hemodynamically significant stenosis. There is a three-vessel aortic arch. The origins of the great vessels are patent. No evidence of hemo dynamically significant stenosis. IMPRESSION: No evidence of dissection of the cervical internal carotid arteries or vertebral arteries. No any evidence of significant stenosis at the carotid bifurcations. No evidence of intracranial large vessel occlusion or intracranial aneurysm. No significant change from most recent CTA study. [facility], , 08/18/2024 9:27 AM
--- NOTE | 2024-08-18 10:01 | P.PN ---
Subjective Progress Note Date: 08/18/24 I am following up with the patient and it seems that patient had worsening of her symptoms and she had speech difficulty and left-sided weakness according to the patient and started in the morning. She had a repeat CT of the head w showed probable evolving acute infarct in the right salazar radiata extending into the central superior basal ganglia.. Per the nurse her symptoms are improving and the patient feels she is getting better but continues to have weakness over the left upper extremity Objective - Vital Signs Vital signs: Vital Signs Temp 97.9 F 08/18/24 08:26 Pulse 92 08/18/24 08:26 Resp 16 08/18/24 08:26 BP 203/81 08/18/24 08:26 Pulse Ox 97 08/18/24 08:26 FiO2 Intake & Output 08/17/24 08/18/24 08/18/24 18:59 06:59 18:59 Intake Total 360 Balance 360 Intake: Oral 360 Other: # Voids 3 2 - Exam GENERAL: The patient is not in acute distress. NEUROLOGICAL: Higher mental function: The patient is awake, alert, oriented to self, place and time. Patient is following commands. No aphasia and no neglect. Cranial nerves: The pupils are round, equal and reactive to light and accommodation. Visual rosales are full to confrontation throughout. Extraocular movement is intact no nystagmus is noted. Facial sensation is normal to touch throughout. The facial strength is left nasolabial flattening. Hearing is normal bilaterally to hand rub. Tongue is midline and moved [id number] without any difficulty. No dysarthria is noted. Shoulder shrug is normal bilaterally. Motor: Gait is normal. The strength is left upper extremity is 4-4+, left is 4+ to 5-. Normal tone and bulk. Cerebellum: Normal finger to nose heel to pike bilaterally. Sensation: Sensation is normal to touch throughout. Some of workup during this hospital visit consisted of: I reviewed the lab workup Hemoglobin A1c 6.3 TSH is 1.820 Lipid panel: Triglyceride is 245, cholesterol is 311, LDL is 200, HDL 61. CT of the head is reported as no acute intracranial process. I personally reviewed the CT and agree with the report. CT angiography of the head and neck is reported as no flow-limiting stenosis bilateral carotid bifurcation. Normal [place]. 2D echo: Normal systolic function. Repeat CT of the head is negative for any acute intracranial hemorrhage or midline shift. Probable evolving acute infarct in the right salazar radiata extending into the central superior basal ganglia. CT angiography of the head and neck is reported as negative for any dissection significant stenosis or occlusion or aneurysm. - Labs CBC & Chem 7: 08/18/24 05:28 08/18/24 05:28 Labs: Abnormal Lab Results - Last 24 Hours (Table) 08/18/24 08/18/24 Range/Units : 08:25 Anion Gap 12.80 H (4.00-12.00) mmol/L BUN/Creatinine Ratio 21.50 H (12.00-20.00) Ratio Glucose 113 H (70-110) mg/dL POC Glucose (mg/dL) 196 H (70-110) mg/dL Albumin/Globulin Ratio 1.52 L (1.60-3.17) Ratio Assessment and Plan Assessment: This is a 59-year-old woman with history of dyslipidemia who is on herbal medication and she was medication for her dyslipidemia in the past who presents the emergency department because of dysarthria and left arm numbness and left hand fine motor movements weakness. Her symptoms happened this past Thursday lasted for half hour then occurred again. Acute ischemic stroke over the right basal ganglia due to her risk factors (HTN, preDM, chronic dyslipidemia). Had worsening of symptoms today and CT head showed probable evolving acute infarct in the right salazar radiata extending into the central superior basal ganglia Hypertension urgency blood pressure during this hospital visit was as high as 200/119 Dyslipidemia and it seems that patient has chronic dyslipidemia and was on herbal and refused medication in the past. Pre-DM Plan: She is on ASA 81mg daily. Because of worsening symptoms, I started her on Plavix 75mg daily. Will look for sign of worsening of bruising. She is started on Lipitor 80 mg nightly by the ED team and that sufficient for secondary stroke prophylaxis. MRI of the brain is pending Continue neurochecks Cardiac monitoring PT, OT and DICE MAKER are consulted Will defer the rest of the medical management to primary and other specialist For DVT prophylaxis: On subq heparin. Upon discharge recommend the patient to follow-up with a neurologist as an outpatient within 2 to 3 weeks. The plan is discussed with the patient and her nurse. Time with Patient: Less than 30
[2024-08-18 10:26] VITALS: BMI 30.9
--- NOTE | 2024-08-18 10:43 | MR ---
EXAMINATION TYPE: MR brain wo con DATE OF EXAM: 08/18/2024 COMPARISON: CT brain earlier today. HISTORY: Code stroke, CVA, Lt hand weakness TECHNIQUE: Multiplanar, multisequence imaging of the brain and brainstem is performed without IV cont rast. FINDINGS: Diffusion weighted images confirm areas of increased signal on diffusion-weighted images with diminis hed signal on ADC mapping corresponding to T1 hypointense and T2 hyperintense areas in the right christa nal radiata extending into the posterior superior basal ganglia measuring approximately 1.8 x 1.1 x 2 .0 cm consistent with evolving acute/subacute infarct. The ventricular system and cisternal spaces are normal in size and appearance. The brain volume is a ge appropriate. Some scattered small foci of T2 hyperintensity are seen throughout the white matter b ilaterally. Approximate 10-15 small scattered lesions are seen. Midline structures demonstrate normal morphology. The craniocervical junction appears within normal limits. Normal vascular flow voids are present. The visualized sinuses are clear and the globes are i ntact. IMPRESSION: 1. Confirmation of approximately 2.0 cm evolving acute infarct right salazar radiata extending into th e posterior superior basal ganglia. [facility], , 08/18/2024 10:40 AM
[2024-08-18] MEDS: PANTOPRAZOLE 40 MG TABLET PO SCH (11:53)
[2024-08-18] MEDS: CLOPIDOGREL 75 MG TAB PO SCH (11:53)
[2024-08-18] MEDS: LOSARTAN 25 MG TAB PO SCH (11:53)
--- NOTE | 2024-08-19 05:17 | P.PN ---
Subjective Progress Note Date: 08/18/24 Patient is a 59-year-old female without significant past medical history presents to ER with complaints of slurred speech and left hand weakness on and off for 3 days. Patient states that on Thursday symptoms lasted about half an hour and again yesterday about half an hour she came to ER for evaluation.. Again today she has symptoms this morning lasted longer than that and also states that she had a charley horse on the left leg. Currently symptoms have resolved but still having some residual left upper extremity weakness. Denies any headache. No nausea vomiting or diarrhea. No recent illnesses. No fever no chills. No chest pain or shortness of breath or palpitations. CT head showed no acute intracranial process. CT angiogram of the head and neck showed no flow-limiting stenosis bilateral carotid bifurcations. Normal [place]. Chest x-ray showed no acute pulmonary process. EKG showed sinus rhythm with low QRS voltage in the precordial leads. Laboratory data showed WBC 9.7 hemoglobin 14.9 and platelets 278 sodium 141 potassium 4.1 chloride 101 bicarb is 27 BUN 18 and creatinine 0.65 blood sugar 101 LDL 212 cholesterol 311 and triglycerides 245. 11 years not elevated. T roponin x 1 negative 08/17/2024 Patient seen in follow-up today and reports continued headache and hypertension. Blood pressure elevated somewhat and has been started on Norvasc 5 mg if continuing to be elevated may add to twice daily. Neurology following and patient is scheduled to undergo MRI and per nursing staff MRI is extremely backed up and may not occur until tomorrow. Patient did have CT angio that was done that shows no flow-limiting stenosis to bilateral carotid bifurcations and normal [place]. Patient's cholesterol is elevated and patient reports this has been chronic and she has not been taking any medications for this. Will start statin therapy and discussed with her the importance of diet control and will also consult dietary for resources regarding hyperlipidemia. 08/18/2024 Patient is seen in follow-up this morning and per nursing staff patient did have increased symptoms of left-sided weakness in upper and lower extremities along with increase in slurred speech and facial drooping. Repeat CT was done per protocol as we had been continuing to await for MRI showing no acute intracranial hemorrhage or midline shift with a probable evolving acute infarct in the right salazar radiata extending in the central superior basal ganglia. MRI was performed shortly after with confirmation of approximately 2.0 cm evolving acute infarct in the right salazar radiata extending into the posterior superior basal ganglia. Blood pressures are mildly elevated and will adjust Norvasc and add twice daily and also add low-dose losartan. Patient is maintained on aspirin and Plavix with neurology following recommending monitoring overnight with possible discharge planning in 24 hours. Discussed at length about lifestyle modifications and compliance to medication and follow-up. Review of systems: Constitutional: No reports of fatigue, fever, or chills Cardiovascular: No reports of chest pain or palpitations Respiratory: No reports of shortness of breath or cough GI: No reports of nausea, vomiting, or diarrhea : No reports of dysuria or retention Neurovascular: reports of left side weakness and continued garbled speech All medications have been reviewed PHYSICAL EXAMINATION: Patient is lying in the bed comfortably, no acute distress, awake alert and oriented.. Well-developed, obese HEENT: Normocephalic. Neck is supple. Pupils reactive. Nostrils clear. Oral cavity is moist. Neck reveals no JVD, carotid bruits, or thyromegaly. CHEST EXAMINATION: Trachea is central. Symmetrical expansion. Lung rosales clear to auscultation and percussion. CARDIAC: Normal S1, S2 with no gallops. No murmurs ABDOMEN: Soft. Bowel sounds normal. No organomegaly. No abdominal bruits. Extremities: reveal no edema. No clubbing or cyanosis Neurologically awake, alert, oriented x3 with well-coordinated movements. 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 Psychiatric: Cooperative. Non-suicidal Musculoskeletal: No joint swelling or deformity. Normal range of motion. Assessment: Left-upper extremity weakness and slurred speech secondary to a 2.0 cm evolving acute infarct of the right salazar radiata extending into the posterior superior basal ganglia as confirmed on MRI Hypertensive urgency Hyperlipidemia with LDL 212 New onset diabetes, hemoglobin A1c is 6.3 Obesity with a BMI of 31.0 DVT prophylaxis with heparin subcu GI prophylaxis Full code Plan: Patient will be continued on telemonitoring and neurochecks. Patient experienced similar symptoms of the left side with weakness and repeat CT CTA was done with concerns of an evolving infarct MRI was performed as mentioned above showing a 2.0 cm evolving acute infarct in the right salazar radiata extending into the posterior basal ganglia. Neurology following recommending monitoring over 24 hours for any further symptoms and also recommends outpatient follow-up with neurology Patient will continue on aspirin and Plavix along with statin therapy Consult dietary for hyperlipidemia as well as new onset diabetes his hemoglobin A1c is 6.3. Discussed at length about lifestyle modifications and compliance with medications and follow-up Possible discharge planning in the next 24 hours The impression and plan of care has been dictated by Tereza Locke, Nurse Practitioner as directed. Dr. Carmen MD I have performed a history and examination and MDM of this patient, discussed the same with the dictator, and agree with the dictator's assessment and plan as written ,documented as a scribe. Based on total visit time, I have performed more than 50% of the visit. Objective - Vital Signs Vital signs: Vital Signs Temp 97.9 F 08/18/24 08:26 Pulse 92 08/18/24 08:26 Resp 16 08/18/24 08:26 BP 203/81 08/18/24 08:26 Pulse Ox 97 08/18/24 08:26 FiO2 Intake & Output 08/17/24 08/18/24 08/18/24 18:59 06:59 18:59 Intake Total 360 Balance 360 Weight 79.379 kg Intake: Oral 360 Other: Voiding Method Toilet # Voids 3 2 - Labs CBC & Chem 7: 08/18/24 05:28 08/18/24 05:28 Labs: Abnormal Lab Results - Last 24 Hours (Table) 08/18/24 08/18/24 Range/Units 05: 08:25 Anion Gap 12.80 H (4.00-12.00) mmol/L BUN/Creatinine Ratio 21.50 H (12.00-20.00) Ratio Glucose 113 H (70-110) mg/dL POC Glucose (mg/dL) 196 H (70-110) mg/dL Albumin/Globulin Ratio 1.52 L (1.60-3.17) Ratio
--- NOTE | 2024-08-19 11:42 | CDI ---
Documentation Clarification Form Date: 08/19/2024 11:22:11 AM From: Galina Pace RN, CCDS Email: [email or web address] Admit Date: 08/15/2024 06:27:00 PM Patient Name: Katina Downey Visit Number: [id number] Discharge Date: ATTENTION: The Clinical Documentation Specialists (CDI) and [facility] Coding Staff appreciate your assistance in clarifying documentation. Please respond to the clarification below the line at the bottom and electronically sign. The CDI & [facility] Coding staff will review the response and follow-up if needed. Please note: Queries are made part of the Legal Health Record. If you have any questions, please contact the author of this message via ITS. Doctor Mario Morales Hypertensive urgency is documented in the progress notes, and the patient is admitted with evolving stroke. Additional specificity related to the hypertension diagnosis is requested. History/Risk Factors: HLD. Presented with slurred speech, headache and left- hand weakness. 08/18 MRI confirmed evolving acute infarct right salazar radiata extending into the posterior superior basal ganglia. Clinical Indicators: 08/15 BP: 199/115-190/101-200/119-209/111-141/89 08/16 BP: 156/93-186/103 08/18 BP: 111/68-163/81-203/81 08/16 Neurology consult: "Hypertension urgency, blood pressure during this hospital visit was as high as 200/119." 08/18 IM: "Left-upper extremity weakness and slurred speech secondary to a 2.0 cm evolving acute infarct of the right salazar radiata extending into the posterior superior basal ganglia as confirmed on MRI. Hypertensive urgency." 58 Neurology: "Acute ischemic stroke over the right basal ganglia due to her risk factors (HTN, preDM, chronic dyslipidemia)." Treatment: Norvasc 5mg po daily 08/16-08/17; Norvasc 5mg po BID 08/17-08/19; Cozaar 25mg po daily 08/18 Please further clarify the hypertension diagnosis, if known: [ ] Hypertensive Crisis [ x ] Hypertensive Emergency [ ] Hypertensive Urgency only [ ] Other Condition, please specify [ ] Unable to determine Clinical Definitions: Hypertensive Urgency SBP > 180 or DBP > 120 without symptoms or with headache Hypertensive Emergency SBP > 180 or DBP > 120 with chest pain or end organ damage Hypertensive encephalopathy, retinal hemorrhages, papilledema, JOCELYNE Hypertensive Crisis SBP > 180 or DBP > 120 Stroke, Heart Attack, Heart Failure, Kidney Failure MTDD
--- NOTE | 2024-08-19 14:50 | P.PN ---
Subjective Progress Note Date: 08/19/24 I am following up with the patient and it seems early in the morning patient had worsening weakness on the left side with speech difficulty. Her blood pressure systolic was 150s. She feels symptoms are better compared to the morning. She feels early in the morning for the last couple days it gets worse then there is improvement. MRI of the brain does reveal patient has acute ischemic stroke over the right basal ganglia. I notified the nursing staff to hold the blood pressure medication Objective - Vital Signs Vital signs: Vital Signs Temp 98.1 F 08/19/24 07:10 Pulse 71 08/19/24 07:10 Resp 16 08/19/24 08:38 BP 153/72 08/19/24 07:10 Pulse Ox 98 08/19/24 07:10 FiO2 Intake & Output 08/18/24 08/19/24 08/19/24 18:59 06:59 18:59 Intake Total 1660 Balance 1660 Weight 79.379 kg Intake: Oral 1660 Other: Voiding Method Toilet Toilet Toilet # Voids 2 - Exam GENERAL: The patient is not in acute distress. NEUROLOGICAL: Higher mental function: The patient is awake, alert, oriented to self, place and time. Patient is following commands. No aphasia and no neglect. Cranial nerves: The pupils are round, equal and reactive to light and accommodation. Visual rosales are full to confrontation throughout. Extraocular movement is intact no nystagmus is noted. Facial sensation is normal to touch throughout. The facial strength is left nasolabial flattening. Hearing is normal bilaterally to hand rub. Tongue is midline and moved [id number] without any difficulty. No dysarthria is noted. Shoulder shrug is normal bilaterally. Motor: Gait is normal. The strength is left upper extremity is 4+,, left hand test bore helper is 4-4+, loss of dexterity of left hand muscles, left lower extremity is 4+ to 5-. Right side is 5/5. Slight loss of tone on let hand. Otherwise normal tone and bulk. Cerebellum: Normal finger to nose bilaterally. Sensation: Sensation is normal to touch throughout. Some of workup during this hospital visit consisted of: I reviewed the lab workup Hemoglobin A1c 6.3 TSH is 1.820 Lipid panel: Triglyceride is 245, cholesterol is 311, LDL is 200, HDL 61. CT of the head is reported as no acute intracranial process. I personally reviewed the CT and agree with the report. CT angiography of the head and neck is reported as no flow-limiting stenosis bilateral carotid bifurcation. Normal [place]. 2D echo: Normal systolic function. Repeat CT of the head is negative for any acute intracranial hemorrhage or midline shift. Probable evolving acute infarct in the right salazar radiata ext ending into the central superior basal ganglia. CT angiography of the head and neck is reported as negative for any dissection significant stenosis or occlusion or aneurysm. MRI of the brain is reported as confirmation of approximately 2.0 cm evolving acute infarct right salazar radiata extending into the posterior superior basal ganglia - Labs CBC & Chem 7: 08/18/24 05:28 08/18/24 05:28 Assessment and Plan Assessment: This is a 59-year-old woman with history of dyslipidemia who is on herbal medication and she was medication for her dyslipidemia in the past who presents the emergency department because of dysarthria and left arm numbness and left hand fine motor movements weakness. Her symptoms happened this past Thursday lasted for half hour then occurred again. Acute ischemic stroke over the right salazar radiata extending into the posterior superior basal ganglia due to chronic small vessel disease due to her risk factors (HTN, preDM, chronic dyslipidemia)--For the past couple days has worsening symptoms during morning A.M. Hypertension urgency blood pressure during this hospital visit was as high as 200/119 Dyslipidemia and it seems that patient has chronic dyslipidemia and was on herbal and refused medication in the past. Pre-DM Plan: She is on ASA 81mg daily and Plavix 75mg daily. Prior to this patient was not on antiplatelets. So far no worsening of bruising. She is started on Lipitor 80 mg nightly by the ED team and that sufficient for secondary stroke prophylaxis. Recommend Systolic blood pressure goal 140-180. Continue neurochecks Cardiac monitoring PT, OT and PAPER NOVELTY [employer]KER are consulted Will defer the rest of the medical management to primary and other specialist For DVT prophylaxis: On subq heparin. Upon discharge recommend the patient to follow-up with a neurologist as an outpatient within 2 to 3 weeks. The plan is discussed with the patient, her who is at bedside and her nurse. Dr. Dillon will resume neurology service tomorrow A.M. Time with Patient: Less than 30
--- NOTE | 2024-08-19 22:39 | P.PN ---
Subjective Progress Note Date: 08/19/24 Patient is a 59-year-old female without significant past medical history presents to ER with complaints of slurred speech and left hand weakness on and off for 3 days. Patient states that on Thursday symptoms lasted about half an hour and again yesterday about half an hour she came to ER for evaluation.. Again today she has symptoms this morning lasted longer than that and also states that she had a charley horse on the left leg. Currently symptoms have resolved but still having some residual left upper extremity weakness. Denies any headache. No nausea vomiting or diarrhea. No recent illnesses. No fever no chills. No chest pain or shortness of breath or palpitations. CT head showed no acute intracranial process. CT angiogram of the head and neck showed no flow-limiting stenosis bilateral carotid bifurcations. Normal [place]. Chest x-ray showed no acute pulmonary process. EKG showed sinus rhythm with low QRS voltage in the precordial leads. Laboratory data showed WBC 9.7 hemoglobin 14.9 and platelets 278 sodium 141 potassium 4.1 chloride 101 bicarb is 27 BUN 18 and creatinine 0.65 blood sugar 101 LDL 212 cholesterol 311 and triglycerides 245. 11 years not elevated. T roponin x 1 negative 08/17/2024 Patient seen in follow-up today and reports continued headache and hypertension. Blood pressure elevated somewhat and has been started on Norvasc 5 mg if continuing to be elevated may add to twice daily. Neurology following and patient is scheduled to undergo MRI and per nursing staff MRI is extremely backed up and may not occur until tomorrow. Patient did have CT angio that was done that shows no flow-limiting stenosis to bilateral carotid bifurcations and normal [place]. Patient's cholesterol is elevated and patient reports this has been chronic and she has not been taking any medications for this. Will start statin therapy and discussed with her the importance of diet control and will also consult dietary for resources regarding hyperlipidemia. 08/18/2024 Patient is seen in follow-up this morning and per nursing staff patient did have increased symptoms of left-sided weakness in upper and lower extremities along with increase in slurred speech and facial drooping. Repeat CT was done per protocol as we had been continuing to await for MRI showing no acute intracranial hemorrhage or midline shift with a probable evolving acute infarct in the right salazar radiata extending in the central superior basal ganglia. MRI was performed shortly after with confirmation of approximately 2.0 cm evolving acute infarct in the right salazar radiata extending into the posterior superior basal ganglia. Blood pressures are mildly elevated and will adjust Norvasc and add twice daily and also add low-dose losartan. Patient is maintained on aspirin and Plavix with neurology following recommending monitoring overnight with possible discharge planning in 24 hours. Discussed at length about lifestyle modifications and compliance to medication and follow-up. 08/19/2024 Patient is seen in follow-up today reporting worsening symptoms when she is waking up including increased headache with left-sided weakness and continued facial droop with difficulty speaking. Patient was placed on amlodipine along with losartan although having extremely fluctuating blood pressures and discussed with neurology and recommend blood pressure systolic to be 140s to 160s and blood pressure medication is being held today. Initial blood pressure early this morning at 1:13 AM was recorded as 110/67 and patient felt extremely symptomatic. Blood pressure rechecked at 0710 and was noted to be 153/72. Neurology recommends monitoring overnight with the fluctuations in symptoms and blood pressure and will need outpatient follow-up with neurology in the next few weeks. Patient has met with dietitian and was provided with resources regarding diet including prediabetes as well as high cholesterol. Patient is afebrile with no reports of chest pain or shortness of breath. Patient continues to have intermittent headache and occasional nausea but reports to feeling improved. Encouraged to increase activity as tolerated and also encouraged slowly getting up with blood pressures fluctuating to avoid any severe symptoms of dizziness, lightheadedness. Patient and family at bedside with questions and concerns that were answered to the best of our ability. Patient reports she does have a follow-up appointment with Dr. Griffin on Thursday this week coming up. Review of systems: Constitutional: No reports of fatigue, fever, or chills Cardiovascular: No reports of chest pain or palpitations Respiratory: No reports of shortness of breath or cough GI: No reports of nausea, vomiting, or diarrhea : No reports of dysuria or retention Neurovascular: reports of left side weakness and continued garbled speech that is worse in the morning All medications have been reviewed PHYSICAL EXAMINATION: Patient is sitting up in the chair, no acute distress, awake alert and oriented.. Well-developed, obese HEENT: Normocephalic. Neck is supple. Pupils reactive. Nostrils clear. Oral cavity is moist. Neck reveals no JVD, carotid bruits, or thyromegaly. CHEST EXAMINATION: Trachea is central. Symmetrical expansion. Lung rosales clear to auscultation and percussion. CARDIAC: Normal S1, S2 with no gallops. No murmurs ABDOMEN: Soft. Bowel sounds normal. No organomegaly. No abdominal bruits. Extremities: reveal no edema. No clubbing or cyanosis Neurologically awake, alert, oriented x3 with well-coordinated movements. Slight facial droop on the left with some noticeable speech disturbances, minimally improved from yesterday, computer networker strength 4/5 upper extremity, 4/5 lower extremity Skin: No rash or skin lesions. Psychiatric: Cooperative. Non-suicidal Musculoskeletal: No joint swelling or deformity. Normal range of motion. Assessment: Left-upper extremity weakness and slurred speech secondary to a 2.0 cm evolving acute infarct of the right salazar radiata extending into the posterior superior basal ganglia as confirmed on MRI Hypertensive urgency, on admission Hyperlipidemia with LDL 212 Prediabetes, hemoglobin A1c is 6.3 Obesity with a BMI of 31.0 DVT prophylaxis with heparin subcu GI prophylaxis Full code Plan: Patient will be continued on telemonitoring and neurochecks. Patient experienced similar symptoms of the left side with weakness again this morning with a lowered blood pressure and blood pressure medications were held per neurology and patient reported to feeling improved later in the morning and blood pressure was noted to be 150 systolic. Will discontinue losartan and continue with Norvasc and would like to keep systolic blood pressure 140s to 160s. MRI was performed as mentioned above showing a 2.0 cm evolving acute infarct in the right salazar radiata extending into the posterior basal ganglia. Neurology following recommending monitoring over 24 hours for any further symptoms and also recommends outpatient follow-up with neurology in the next 2 to 3 weeks. Patient will continue on aspirin and Plavix along with statin therapy Hemoglobin A1c is 6.3, prediabetic and has discussed with dietary regarding high cholesterol and diabetic diets Discussed at length about lifestyle modifications and compliance with medications and follow-up. Patient uses essential oils as part of her self-care and will follow-up with primary care provider Dr. Griffin regarding this Patient will require a work note on discharge for excuse of next week and will be following up with primary care provider Dr. Griffin on Thursday Possible discharge planning in the next 24 hours The impression and plan of care has been dictated by Tereza Locke, Nurse Practitioner as directed. Dr. Cirilo MD I have performed a history and examination and MDM of this patient, discussed the same with the dictator, and agree with the dictator's assessment and plan as written ,documented as a scribe. Based on total visit time, I have performed more than 50% of the visit. Objective - Vital Signs Vital signs: Vital Signs Temp 98.1 F 08/19/24 07:10 Pulse 71 08/19/24 07:10 Resp 16 08/19/24 07:10 BP 153/72 08/19/24 07:10 Pulse Ox 98 08/19/24 07:10 FiO2 Intake & Output 08/18/24 08/19/24 08/19/24 18:59 06:59 18:59 Intake Total 1660 Balance 1660 Weight 79.379 kg Intake: Oral 1660 Other: Voiding Method Toilet Toilet # Voids 2 - Labs CBC & Chem 7: 08/18/24 05:28 08/18/24 05:28
[2024-08-20 00:40] VITALS: RESP 16
[2024-08-20 01:33] VITALS: TEMP 97.6
[2024-08-20 07:20] VITALS: BP 127/80; PULSE 70
--- NOTE | 2024-08-20 12:11 | P.DS ---
Providers Date of admission: 08/15/24 18:27 Attending physician: Yesi Dominique Consults: 08/15/24 18:24 Consult Physician Routine Consulting Provider: Antwan Dougherty Consult Reason/Comments: TIA Do you want consulting provider notified?: Yes, Notify in am Primary care physician: Leo Griffin Patient is admitted for left upper extremity weakness and speech abnormality along with facial droop found to have an effect and infarct in the right salazar radiator extending into the posterior superior basal ganglia. Patient had an evolving stroke but the symptoms of are improving at this time. Patient was cleared with neurology patient will be discharged on aspirin Plavix statin. Patient will not require any blood pressure medications at this time patient blood pressure is elevated for stroke which is expected. Patient will follow-up with PCP as an outpatient will check the blood pressure 2-3 times a day. Patient will follow-up with neurology as an outpatient patient will need outpatient physical therapy Occupational Therapy and speech therapy. PHYSICAL EXAMINATION: GENERAL: The patient is alert and oriented x3, not in any acute distress. Well developed, well nourished. HEENT: Pupils are round and equally reacting to light. EOMI. No scleral icterus. No conjunctival pallor. Normocephalic, atraumatic. No pharyngeal erythema. No thyromegaly. CARDIOVASCULAR: S1 and S2 present. No murmurs, rubs, or gallops. PULMONARY: Chest is clear to auscultation, no wheezing or crackles. ABDOMEN: Soft, nontender, nondistended, normoactive bowel sounds. No palpable organomegaly. MUSCULOSKELETAL: No joint swelling or deformity. EXTREMITIES: No cyanosis, clubbing, or pedal edema. NEUROLOGICAL: As mentioned in the HPI SKIN: No rashes. Assessment and plan Left-upper extremity weakness and slurred speech secondary to a 2.0 cm evolving acute infarct of the right salazar radiata extending into the posterior superior basal ganglia as confirmed on MRI Hypertensive urgency, on admission Hyperlipidemia with LDL 212 Prediabetes, hemoglobin A1c is 6.3 Obesity with a BMI of 31.0 Text Patient Condition at Discharge: Serious Plan - Discharge Summary New Discharge Prescriptions: New Aspirin 81 mg PO DAILY #30 tab Atorvastatin [Lipitor] 80 mg PO HS #30 tab Clopidogrel [Plavix] 75 mg PO DAILY #21 tab Discharge Medication List Aspirin 81 mg PO DAILY #30 tab 08/20/24 [Rx] Atorvastatin [Lipitor] 80 mg PO HS #30 tab 08/20/24 [Rx] Clopidogrel [Plavix] 75 mg PO DAILY #21 tab 08/20/24 [Rx] Follow up Appointment(s)/Referral(s): Leo Griffin MD [Primary Care Provider] - 3 Days Bao Morris DO [STAFF PHYSICIAN] - 1 Week Discharge Disposition: HOME SELF-CARE
--- NOTE | 2024-08-20 16:58 | P.PN ---
Subjective Progress Note Date: 08/20/24 The patient is a 59-year-old female who is seen in neurologic follow-up on August 20, 2024, in cross coverage for Dr. Antwan Dougherty, in collaboration with Carleen Nunez, via teleneurology. Patient's chart has been reviewed. The patient's and daughter are present at the bedside at the time of the evaluation. The patient reports that she continues to have some difficulty with slurring of her speech. She also notices some weakness of her left side. Apparently there has been some concern about the patient's blood pressure and so she was kept in the hospital an extra day to monitor her her symptoms and blood pressure. Patient has an acute right basal ganglia ischemic infarct, per CT scan of the brain and confirmed by MRI. Objective - Vital Signs Vital signs: Vital Signs Temp 97.6 F 08/20/24 06:55 Pulse 70 08/20/24 06:55 Resp 16 08/20/24 06:55 BP 127/80 08/20/24 06:55 Pulse Ox 94 L 08/20/24 06:55 FiO2 Intake & Output 08/19/24 08/20/24 08/20/24 18:59 06:59 18:59 Intake Total 590 118 Balance 590 118 Intake: Oral 590 118 Other: Voiding Method Toilet Toilet Toilet # Voids 5 2 - Exam General: The patient is seated in the bed. She is well-nourished, well- developed and in no acute distress. HEENT: Head is atraumatic, normocephalic. Fundus not visualized. There is no scleral icterus. Mucous membranes are moist. Neurological examination Mental status: The patient is awake, alert and oriented x 3. Her speech is very slightly slurred. Cranial nerves: Pupils are equal and reactive. There is a left facial droop. Tongue protrudes midline. Motor: Left-sided weakness in comparison to the right. Coordination: There is slowing of left-sided rapid alternating movements. There is a left pronator drift. - Labs CBC & Chem 7: 08/18/24 05:28 08/18/24 05:28 Assessment and Plan Assessment: Acute ischemic stroke over the right salazar radiata extending into the posterior superior basal ganglia due to chronic small vessel disease due to her risk factors (HTN, preDM, chronic dyslipidemia)--For the past couple days has worsening symptoms during morning A.M. Hypertension urgency blood pressure during this hospital visit was as high as 200/119 Dyslipidemia and it seems that patient has chronic dyslipidemia and was on herbal and refused medication in the past. Pre-DM Plan: She is on ASA 81mg daily and Plavix 75mg daily. Prior to this patient was not on antiplatelets. So far no worsening of bruising. She is started on Lipitor 80 mg nightly by the ED team and that sufficient for secondary stroke prophylaxis. Recommend Systolic blood pressure goal 140-180. At today's evaluation, patient's family asked again about blood pressure monitoring. They were advised that the systolic (top number) blood pressure should be between 110 and 140. If the blood pressure is too high, they were advised to call the family doctor or, if markedly elevated come into the emergency department. If the blood pressure is too low, the patient is advised to increase salt and water intake and/or call her family doctor. Upon discharge recommend the patient to follow-up with a neurologist as an outpatient within 2 to 3 weeks. Time with Patient: Greater than 30 (35 minutes were spent caring for this patient today including, obtaining history, examining patient, reviewing imaging, chart documentation, labs, placing orders and creating this note)
== END 2024-08-20 12:57 | disposition home or self-care (01) | DRG 65 ==
LOC: EC 16:16 → 6NMEDSUR 18:26 → OBSVTOIN 18:27 → 6NMEDSUR 22:28
PROVIDERS: ADMIT Hospitalist; ATTEND Hospitalist
DX: I63.81 Other cerebral infarction due to occlusion or stenosis of small artery (principal); I16.1 Hypertensive emergency; E11.9 Type 2 diabetes mellitus without complications; G83.24 Monoplegia of upper limb affecting left nondominant side; E66.9 Obesity, unspecified; I10 Essential (primary) hypertension; Z68.31 Body mass index [BMI] 31.0-31.9, adult; R47.1 Dysarthria and anarthria; R29.810 Facial weakness; E78.00 Pure hypercholesterolemia, unspecified; R29.700 NIHSS score 0; M62.831 Muscle spasm of calf; Z88.4 Allergy status to anesthetic agent
CPT/HCPCS: 36415; 70450; 70496; 70498; 70551; 71046; 80048; 80053; 80061; 81003; 82550; 83036; 83735; 84443; 84484; 85025; 85610; 85730; 93005; 93306; 99285

== ENCOUNTER → 2024-10-03 | Outpatient (CLI) | payer BC ==
--- NOTE | 2024-10-03 12:01 | MM ---
Reason for Exam: Screening (asymptomatic). Last mammogram was performed 1 year(s) and 9 month(s) ago. Patient History: Menarche at age 11. First Full-Term at age 30. Late child-bearing (after 29). Postmenopausal. Patient has history of breast feeding. Paternal aunt had breast cancer. Risk Values: Anna 5 year model risk: 1.0%. NCI Lifetime model risk: 5.8%. Prior Study Comparison: 06/19/2017 Bilateral Screening Mammogram, [facility]. 04/04/2020 Bilateral Screening Mammogram, [facility]. 12/31/2022 Bilateral MG 3D screening mammo w/cad, [facility]. Tissue Density: There are scattered areas of fibroglandular density. Findings: Analyzed By CAD. Right breast: There is no suspicious group of microcalcifications or new suspicious mass. Left breast: There is no suspicious group of microcalcifications or new suspicious mass. Overall Assessment: Negative, BI-RAD 1 Management: Screening Mammogram of both breasts in [address] [facility] will attempt to contact patient to return for supplemental views and ultrasound if indicated. Patient should continue monthly self-breast exams. A clinical breast exam by your physician is recommended on an annual basis. This exam should not preclude additional follow-up of suspicious palpable abnormalities. Note on Anna scores and lifetime risk: 1. A Anna score greater than 3% is considered moderate risk. If this is the case, consider specialist referral to assess eligibility for a risk reducing agent. 2. If overall lifetime risk for the development of breast cancer is 20% or higher, the patient may qualify for future screening with alternating mammogram and breast MRI. [facility], , 10/03/2024 11:58 AM. Electronically signed and approved by: Dionte Rosenbaum DO
== END | disposition home or self-care (01) ==
LOC: RADMAMWWP 11:32
PROVIDERS: ATTEND Family Medicine
DX: Z12.31 Encounter for screening mammogram for malignant neoplasm of breast (principal); R92.323 Mammographic fibroglandular density, bilateral breasts; Z78.0 Asymptomatic menopausal state; Z80.3 Family history of malignant neoplasm of breast
CPT/HCPCS: 77063; 77067

== ENCOUNTER 2024-10-06 00:08 | Emergency (ER) | payer BC ==
--- NOTE | 2024-10-06 00:44 | ED ---
General Adult HPI - General Chief complaint: Recheck/Abnormal Lab/Rx Stated complaint: Hypertension Time Seen by Provider: 10/06/24 00:34 Source: patient, RN notes reviewed Mode of arrival: ambulatory Limitations: no limitations - History of Present Illness Initial comments: 59-year-old female presents to the emergency department for evaluation of elvin rios blood pressure readings. Patient was this starting today. She reported a mild headache on the right side of her head. This pain is not severe in nature. She has no history of hypertension. She otherwise feels well. Denies any chest pain or shortness of breath. Denies any nausea, vomiting, diaphoresis. - Related Data Previous Rx's Medication Instructions Recorded Aspirin 81 mg PO DAILY #30 tab 08/20/24 Atorvastatin [Lipitor] 80 mg PO HS #30 tab 08/20/24 Clopidogrel [Plavix] 75 mg PO DAILY #21 tab 08/20/24 Allergies Allergy/AdvReac Type Severity Reaction Status Date / Time lidocaine Allergy Rash/Hives Verified 10/06/24 00:25 egg AdvReac congestion Verified 10/06/24 00:25 Milk Containing Products AdvReac causes Verified 10/06/24 00:25 (Dairy) muscle [Dairy] pain and congestion Review of Systems ROS Statement: Those systems with pertinent positive or pertinent negative responses have been documented in the HPI. ROS Other: All systems not noted in ROS Statement are negative. Past Medical History Past Medical History: CVA/TIA Additional Past Medical History / Comment(s): screening History of Any Multi-Drug Resistant Organisms: None Reported Additional Past Surgical History / Comment(s): ECTOPIC SX Past Anesthesia/Blood Transfusion Reactions: No Reported Reaction Past Psychological History: No Psychological Hx Reported Smoking Status: Never smoker Past Alcohol Use History: None Reported Past Drug Use History: None Reported - Past Family History Mother Family Medical History: Cancer General Exam Limitations: no limitations General appearance: alert, in no apparent distress Head exam: Present: atraumatic, normocephalic, normal inspection Eye exam: Present: normal appearance, PERRL, EOMI. Absent: scleral icterus, conjunctival injection, periorbital swelling ENT exam: Present: normal exam, mucous membranes moist Neck exam: Present: normal inspection. Absent: tenderness, meningismus, lymphadenopathy Respiratory exam: Present: normal lung sounds bilaterally. Absent: respiratory distress, wheezes, rales, rhonchi, stridor Cardiovascular Exam: Present: regular rate, normal rhythm, normal heart sounds. Absent: systolic murmur, diastolic murmur, rubs, gallop, clicks Extremities exam: Present: normal inspection, full ROM, normal capillary refill. Absent: tenderness, pedal edema, joint swelling, calf tenderness Back exam: Present: normal inspection Neurological exam: Present: alert, oriented X3, CN II-XII intact, normal gait Psychiatric exam: Present: normal affect, normal mood Skin exam: Present: warm, dry, intact, normal color. Absent: rash Course Vital Signs 10/06/24 10/06/24 10/06/24 00:23 02:17 03:55 Temperature 97.9 F 97.8 F Pulse Rate 74 64 55 L Respiratory 18 16 18 Rate Blood Pressure 192/93 167/83 161/81 O2 Sat by Pulse 96 98 96 Oximetry Medical Decision Making - Medical Decision Making Was pt. sent in by a medical professional or institution (, PA, TANK FURNACE OPERATOR, urgent care, hospital, or group home...) When possible be specific @ -No Did you speak to anyone other than the patient for history (EMS, parent, family, police, friend...)? What history was obtained from this source @ -No Did you review nursing and triage notes (agree or disagree)? Why? @ -I reviewed and agree with nursing and triage notes Were old charts reviewed (outside hosp., previous admission, EMS record, old EKG, old radiological studies, urgent care reports/EKG's, group home records)? Report findings @ -No old charts were reviewed Differential Diagnosis (chest pain, altered mental status, abdominal pain women, abdominal pain men, vaginal bleeding, weakness, fever, dyspnea, syncope, headache, dizziness, GI bleed, back pain, seizure, CVA, palpatations, mental health, musculoskeletal)? @ -Differential Headache: Migraine, tension, cluster, carbon monoxide, central venous thrombosis, pension karma temporal arteritis, acute closure glaucoma, intercranial hemorrhage, mastoiditis, sinusitis, head injury, this is not meant to be an all-inclusive list. EKG interpreted by me (3pts min.). @ -EKG@0045 shows sinus rhythm rate 62, VA 177, QRS 87, QT/QTc 395/401 X-rays interpreted by me (1pt min.). @ -Chest x-ray reveals no acute process CT interpreted by me (1pt min.). @ -None done U/S interpreted by me (1pt. min.). @ -None done What testing was considered but not performed or refused? (CT, X-rays, U/S, labs)? Why? @ -None What meds were considered but not given or refused? Why? @ -None Did you discuss the management of the patient with other professionals (professionals i.e. , PA, TANK FURNACE OPERATOR, lab, RT, psych nurse, director social welfare, lawyer probate, teacher, medical laboratory technical officer, case loader operator)? Give summary @ -No Was smoking cessation discussed for >3mins.? @ -No Was critical care preformed (if so, how long)? @ -No Were there social determinants of health that impacted care today? How? (Homelessness, low income, unemployed, alcoholism, drug addiction, transportation, low edu. Level, literacy, decrease access to med. care, retirement, rehab)? @ -No Was there de-escalation of care discussed even if they declined (Discuss DNR or withdrawal of care, Hospice)? DNR status @ -No What co-morbidities impacted this encounter? (DM, HTN, Smoking, COPD, CAD, Cancer, CVA, ARF, Chemo, Hep., AIDS, mental health diagnosis, sleep apnea, morbid obesity)? @ -None Was patient admitted / discharged? Hospital course, mention meds given and route, prescriptions, significant lab abnormalities, going to OR and other pertinent info. @ -Discharge. Patient presented emergency department for elevated blood pressure readings. On initial evaluation, blood pressureElevated at 192/93, repeat performed without any medication intervention was 161/81. Laboratory studies were obtainedRevealing no significant leukocytosis, hemoglobin 13.9; CMP is nonactionable, negative troponin. She does have elevated AST and ALT which she is aware of and is following with her primary care provider for. Patient will be discharged home. She is understanding agreeable with plan. Patient stable to at time of discharge. Case discussed with Dr. Jenkins. Undiagnosed new problem with uncertain prognosis? @ -No Drug Therapy requiring intensive monitoring for toxicity (Heparin, Nitro, Insulin, Cardizem)? @ -No Were any procedures done? @ -No Diagnosis/symptom? @ -Elevated blood pressure readings Acute, or Chronic, or Acute on Chronic? @ -Acute Uncomplicated (without systemic symptoms) or Complicated (systemic symptoms)? @ -Uncomplicated Side effects of treatment? @ -No Exacerbation, Progression, or Severe Exacerbation? @ -No Poses a threat to life or bodily function? How? (Chest pain, [place], [place], pneumonia, PE, COPD, DKA, ARF, appy, cholecystitis, CVA, Diverticulitis, Homicidal, Suicidal, threat to staff... and all critical care pts) @ -No - Lab Data Result diagrams: 10/06/24 00:58 10/06/24 00:58 Lab Results 10/06/24 10/06/24 10/06/24 Range/Units 00:58 00:58 00:58 WBC 7.41 (4.50-10.00) 10*3/uL RBC 4.93 (4.10-5.20) 10*6/uL Hgb 13.9 (12.0-15.0) g/dL Hct 41.4 (37.2-46.3) % MCV 84.0 (80.0-97.0) fL MCH 28.2 (27.0-32.0) pg MCHC 33.6 (32.0-37.0) g/dL Plt Count 231 (140-440) 10*3/uL MPV 9.6 (9.5-12.2) fL Immature Gran % (Auto) 0.3 % Neutrophils % 64.8 % Lymphocytes % 26.3 % Monocytes % 5.4 % Eosinophils % 2.8 % Basophils % 0.4 % Immature Gran # 0.02 (0.00-0.04) 10*3/uL Neutrophils # 4.80 (1.80-7.70) 10*3/uL Lymphocytes # 1.95 (0.90-5.00) 10*3/uL Monocytes # 0.40 (0.20-1.00) 10*3/uL Eosinophils # 0.21 (0.04-0.35) 10*3/uL Basophils # 0.03 (0.00-0.10) 10*3/uL Sodium 140 (137-145) mmol/L Potassium 3.7 (3.5-5.1) mmol/L Chloride 103 (98-107) mmol/L Carbon Dioxide 25 (22-30) mmol/L Anion Gap 12 mmol/L BUN 14 (7-17) mg/dL Creatinine 0.50 L (0.52-1.04) mg/dL Est GFR (CKD-EPI)AfAm >90 (>60 ml/min/1.73 sqM) Est GFR (CKD-EPI)NonAf >90 (>60 ml/min/1.73 sqM) Glucose 107 H (74-99) mg/dL Calcium 10.1 (8.4-10.2) mg/dL Magnesium 2.1 (1.6-2.3) mg/dL Total Bilirubin 0.5 (0.2-1.3) mg/dL AST 86 H (14-36) U/L ALT 169 H (4-34) U/L Alkaline Phosphatase 80 (38-126) U/L Troponin I <0.012 (0.000-0.034) ng/mL Total Protein 7.5 (6.3-8.2) g/dL Albumin 4.7 (3.5-5.0) g/dL Disposition Clinical Impression: Elevated blood pressure reading without diagnosis of hypertension Disposition: HOME SELF-CARE Condition: Stable Instructions (If sedation given, give patient instructions): Heart Healthy Diet (ED) Additional Instructions: Please monitor your blood pressure at home. Follow up with your primary care provider. Return to the emergency department for new or worsening symptoms as we discussed. Is patient prescribed a controlled substance at d/c from ED?: No Referrals: Leo Griffin MD [Primary Care Provider] - 1-2 days Mike Saenz DO [STAFF PHYSICIAN] - 1-2 days Donovan Pugh MD [Medical Doctor] - 1-2 days Robert Stark MD [STAFF PHYSICIAN] - 1-2 days Seth Luciano MD [STAFF PHYSICIAN] - 1-2 days
[2024-10-06 01:19] LABS: Basophils # (A) 0.03 10*3/uL (0.00-0.10); Basophils % (A) 0.4 %; Eosinophils # (A) 0.21 10*3/uL (0.04-0.35); Eosinophils % (A) 2.8 %; HCT 41.4 % (37.2-46.3); HGB 13.9 g/dL (12.0-15.0); Lymphocytes # (A) 1.95 10*3/uL (0.90-5.00); Lymphocytes % (A) 26.3 %; MCH 28.2 pg (27.0-32.0); MCHC 33.6 g/dL (32.0-37.0); Mean Platelet Volume 9.6 fL (9.5-12.2); Monocytes % (A) 5.4 %; Neutrophils % (A) 64.8 %; Platelet Count 231 10*3/uL (140-440); RBC 4.93 10*6/uL (4.10-5.20); RDW 13.6 % (11.5-14.5); WBC 7.41 10*3/uL (4.50-10.00)
[2024-10-06 01:33] LABS: ALT 169 U/L (4-34); AST 86 U/L (14-36); African American GFR (CKD) >90 (>60 ml/min/1.73 sqM); Albumin 4.7 g/dL (3.5-5.0); Alkaline Phosphatase 80 U/L (38-126); Anion Gap 12 mmol/L; Blood Urea Nitrogen 14 mg/dL (7-17); Calcium 10.1 mg/dL (8.4-10.2); Carbon Dioxide 25 mmol/L (22-30); Chloride 103 mmol/L (98-107); Glucose 107 mg/dL (74-99); Magnesium 2.1 mg/dL (1.6-2.3); Non-African American GFR(CKD) >90 (>60 ml/min/1.73 sqM); Potassium 3.7 mmol/L (3.5-5.1); Sodium 140 mmol/L (137-145); Total Bilirubin 0.5 mg/dL (0.2-1.3); Total Protein 7.5 g/dL (6.3-8.2)
--- NOTE | 2024-10-06 03:26 | XR ---
EXAM: XR Chest, 2 Views CLINICAL HISTORY: HIGH BP SLIGHT HEADACHE. High bp TECHNIQUE: Frontal and lateral views of the chest. COMPARISON: 08/15/2024 FINDINGS: Lungs: Unremarkable. No consolidation. Pleural space: Unremarkable. Mediastinum: Unremarkable. Normal mediastinal contour. Bones/joints: No acute findings. IMPRESSION: No acute findings.
[2024-10-06 03:56] VITALS: BP 161/81; PULSE 55; RESP 18; TEMP 97.8
== END 2024-10-06 03:56 | disposition home or self-care (01) ==
LOC: EC 00:08
DX: R03.0 Elevated blood-pressure reading, without diagnosis of hypertension (principal); Z86.73 Personal history of transient ischemic attack (TIA), and cerebral infarction without residual deficits; Z91.012 Allergy to eggs; Z91.011 Allergy to milk products; Z88.8 Allergy status to other drugs, medicaments and biological substances
CPT/HCPCS: 36415; 71046; 80053; 83735; 84484; 85025; 93005; 99284

== ENCOUNTER → 2024-11-07 | Outpatient (CLI) | payer BC ==
--- NOTE | 2024-12-09 09:09 | CE ---
CARDIAC ELECTROPHYSIOLOGY REPORT STUDY: A 30 days event monitor. INDICATION: Cardiac arrhythmia. FINDINGS: The patient was monitored for 30 days. The baseline rhythm appeared to be sinus mechanism. Average heart rate was 69 beats per minute. No atrial fibrillation or flutter noted. No SVT or sinus pause noted. No AV block was noted. No ventricular tachycardia noted. PACs and PVCs noted in less than 1% of the total beats count. CONCLUSION: This is a normal 30-day event monitor. MMODL / IJN: [id number] /
== END | disposition home or self-care (01) ==
LOC: RADECHMAIN 13:21
PROVIDERS: ATTEND Psychiatry & Neurology Neurology
DX: I49.9 Cardiac arrhythmia, unspecified (principal)
CPT/HCPCS: 93270

== ENCOUNTER → 2024-11-09 | Outpatient (CLI) | payer BC ==
[2024-11-09 16:35] LABS: Hepatitis B Surface Antigen Nonreactive (Nonreactive); Hepatitis C IgG Antibody Nonreactive (Nonreactive)
[2024-11-09 16:47] LABS: BUN/Creat Ratio 17.57 Ratio (12.00-20.00); Blood Urea Nitrogen 12.3 mg/dL (9.0-27.0); Glucose 108 mg/dL (70-110)
[2024-11-09 16:48] LABS: ALT 201 U/L (8-44); AST 110 U/L (13-35); Albumin 4.6 g/dL (3.8-4.9); Albumin/Globulin Ratio 2.09 Ratio (1.60-3.17); Alkaline Phosphatase 75 U/L (41-126); Anion Gap 12.70 mmol/L (4.00-12.00); Calcium 9.6 mg/dL (8.7-10.3); Carbon Dioxide 25.3 mmol/L (21.6-31.8); Chloride 104 mmol/L (96-109); Globulin 2.2 g/dL (1.6-3.3); Potassium 4.6 mmol/L (3.5-5.5); Sodium 142 mmol/L (135-145); Total Protein 6.8 g/dL (6.2-8.2)
== END | disposition home or self-care (01) ==
LOC: LABWHC1 09:05
PROVIDERS: ATTEND Internal Medicine Gastroenterology
DX: R79.89 Other specified abnormal findings of blood chemistry (principal)
CPT/HCPCS: 36415; 80053; 86803; 87340